=== PATIENT | female | born 1965 | race Caucasian/White ===

== ENCOUNTER 2024-08-20 03:37 | Inpatient (IN) | payer BC, SELFPAY ==
[2024-08-20] VITALS (18 sets, daily range): BP systolic 111–177; BP diastolic 65–100; PULSE 88–120; RESP 14–23; TEMP 36.8–37.1; O2SAT 94–100
--- NOTE | 2024-08-20 | ECHO_ITS ---
Patient Info Name: Daja Snyder Age: 58 years : 1965 Gender: Female Wt: 232 lbs HR: 100 bpm BP: 161 / 79 mmHg Heart Rhythm: Sinus Rhythm Technical Quality: Fair Exam Date: 08/20/2024 11:42 AM Exam Location: Echo Lab Patient Status: Inpatient Admit Date: 08/20/2024 Staff Ordering Physician: Rob Price MD Wheel Braider: Mandi Bone RDCS Attending Provider: Rob Price MD Exam Type: CA echo dop color flow w con Study Info Indications - Acute anterior IA Complete two-dimensional, color flow and Doppler transthoracic echocardiogram is performed with contrast to opacify the left ventricle and to improve the deliniation of the left ventricle endocardial borders. Contrast/Agitated Saline Amount: 5.00 ml IV Access Condition: patent with no signs of infiltration Contrast/Ag. Saline: Definity Amount: --- ml Summary 1. Left ventricular chamber dimension is normal. 2. There is mildly increased left ventricular wall thickness. 3. Left ventricular systolic function is moderately reduced, estimated at 35-40%. 4. There is hypokinesis of the inferoseptum, apex, anteroseptum. 5. The left ventricular diastolic function is grade I diastolic dysfunction. 6. Right ventricular systolic function is normal. 7. There is mild mitral valve regurgitation. 8. There is mild tricuspid valve regurgitation. Left Ventricle Left ventricular chamber dimension is normal. Left ventricular systolic function is moderately reduced, estimated at 35-40%. There is mildly increased left ventricular wall thickness. There is hypokinesis of the inferoseptum, apex, anteroseptum. The left ventricular diastolic function is grade I diastolic dysfunction. Right Ventricle Right ventricular chamber dimension is normal. Right ventricular systolic function is normal. Left Atria Left atrial chamber dimension is normal. Right Atria Right atrial chamber dimension is normal. Atrial Septum Intact interatrial septum visualized by color flow imaging. Aortic Valve The aortic valve is probable trileaflet. There is no aortic valve stenosis. There is no aortic valve regurgitation. Pulmonic Valve The pulmonic valve is not well visualized. Mitral Valve There is mild mitral valve regurgitation. Tricuspid Valve There is mild tricuspid valve regurgitation. Pericardium/Pleural There is no pericardial effusion. Inferior Vena Cava Normal inferior vena cava with >50% collapse upon inspiration consistent with normal right atrial pressure, 3 mmHg. Aorta The aortic root size at the sinus of Valsalva is normal. Left Ventricular Outflow Tract Name Value Normal LVOT 2D LVOT Diameter 2.11 cm LVOT Doppler LVOT Peak Gradient 2 mmHg LVOT Mean Gradient 1 mmHg LVOT VTI 13.47 cm LVOT VTI/AV VTI Ratio 0.72 LVOT Stroke Volume 47.09 ml LVOT CO 4.58 l/min LVOT CI 2.05 L/min/m2 Pulmonic Valve Name Value Normal RVOT Doppler RVOT Peak Gradient 3 mmHg PV Doppler PV Peak Gradient 7 mmHg Mitral Valve Name Value Normal MV Doppler MV Decel Ponce 494.59 cm/s2 MV PHT 0 s MV Area (PHT) 5.13 cm2 4.00-5.00 MV Diastolic Function MV E Peak Velocity 73.13 cm/s MV A Peak Velocity 90.68 cm/s MV E/A 0.81 MV Decel Time 0 s MV Annular TDI MV E/e' (Septal) 10.99 <=8.00 MV E/e' (Lateral) 10.00 <=8.00 MV E/e' (Average) 10.49 Tricuspid Valve Name Value Normal TV Regurgitation Doppler TR Peak Velocity 302.77 cm/s TR Peak Gradient 32 mmHg Estimated PAP/RSVP RA Pressure 3 mmHg <=5 PA Systolic Pressure 40 mmHg <36 RV Systolic Pressure 40 mmHg <36 Aortic Valve Name Value Normal AV Doppler AV Peak Velocity 111.51 cm/s AV Peak Gradient 5 mmHg AV Mean Gradient 3 mmHg AV VTI 18.61 cm AV Area (Cont Eq VTI) 2.53 cm2 >=3.00 AV Area (Cont Eq Esau) 2.38 cm2 AV Regurgitation 2D LVOT Area 3.50 cm2 Ventricles Name Value Normal LV Dimensions 2D/MM IVS Diastolic Thickness (2D) 1.11 cm 0.60-1.00 LVID Diastole (2D) 4.22 cm 3.80-5.20 LVIW Diastolic Thickness (2D) 0.90 cm 0.60-0.90 LVID Systole (2D) 2.99 cm 2.20-3.50 LVOT Diameter 2.11 cm LV Mass (2D Cubed) 139.04 g 67.00-162.00 Relative Wall Thickness (2D) 0.43 LV Fractional Shortening/Ejection Fraction 2D/MM LV Fractional Shortening (2D) 29 % 27-45 LV EF (2D Teicholz) 56 % 54-74 LV Diastolic Volume (4C MOD) 205.83 ml LV EF (4C MOD) 37 % LV Diastolic Volume (2C MOD) 216.28 ml LV EF (2C MOD) 43 % LV Diastolic Volume (BP MOD) 215.91 ml 46.00-106.00 LV Systolic Volume (BP MOD) 126.02 ml 14.00-42.00 LV EF (BP MOD) 42 % 54-74 LV Diastolic Length (4C) 8.91 cm LV Systolic Length (4C) 7.89 cm LV Stroke Volume (4C MOD) 76.18 ml Atria Name Value Normal LA Dimensions LA Volume (4C A-L) 57.97 ml RA Dimensions RA Area (4C) 17.31 cm2 <=18.00 Report Signatures
--- NOTE | ~2024-08-20 | XR_ITS ---
Portable chest x-ray Comparison: 07/21/2017 Clinical History: Chest pain Findings: Possible minimal bibasilar interstitial prominence. Probable minimal central congestive ch prateek. Cardiomediastinal silhouette is stable. Bones and soft tissues are unremarkable. Impression: Minimal central congestive change and possible minimal bibasilar interstitial edema versus minimal bi basilar chronic interstitial change. Reviewed, dictated and finalized at location . Impression: Minimal central congestive change and possible minimal bibasilar interstitial e porter versus minimal bibasilar chronic interstitial change.
--- OUTSIDE RECORDS SUMMARY | 2024-08-20 03:40 | XMS_ITS | Clinical Summary ---
Author Organization [facility] Address [address] [place] [id number] Care Team Providers Care Electrical Solderer Name Role Phone Unavailable Primary Care Provider Unavailabl e Social History Tobacco Use Types Packs/Day Years Used Date Smoking Tobacco: Never Assessed Comments Unknown Sex and Gender Information Value Date Recorded Sex Assigned at Not on file Legal Sex Female 4:24 PM CDT Gender Identity Not on file Sexual Orientation Not on file Plan of Treatment Health Maintenance Due Date Last Done Comments Cervical Cancer Screening Pa p Smear (Age 30 to 64) Every 3 Years 1965 Colorectal Cancer Screening Colonoscopy (10 Years) 1965 Annual Physical 1968 Hepatitis C 11/28/1983 DTaP, Tdap and Td Vaccines ( 1 - Tdap) 1984 Hepatitis B Vaccines (1 of 3 - 19+ 3-dose series) 1984 Cervical Cancer Screening Pa p with HPV Testing (Age 30 to 64) Every 5 Years 11/28/1995 Cervical Cancer Screening with HPV 11/28/1995 Mammogram Screening 2005 Pneumococcal Vaccine: 50+ Ye ars (1 of 1 - PCV) 11/28/2015 Zoster Vaccines (1 of 2) 11/28/2015 COVID-19 Vaccine (2023-2 5 season) 2023 Meningococcal B Vaccine Aged Out No l onger eligible based on patient's age to complete this topic Meningococcal Vaccine Aged Out No cyrus trixie eligible based on patient's age to complete this topic RSV Immunizations Under 20 Months Aged Out No longer eligible based on patient's age to complete this topic
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
--- NOTE | 2024-08-20 03:43 | ECG_ITS ---
Test Date: 2024-08-20 03:48:23 Measurements Intervals [place] Rate: 111 P: 33 KS: 178 QRS: 29 QRSD: 108 T: 69 QT: 374 QTc: 508 Interpretive Statements SINUS TACHYCARDIA POSSIBLE RIGHT VENTRICULAR CONDUCTION DELAY ANTEROSEPTAL ST ELEVATION MYOCARDIAL INFARCT- RECENT BASELINE ARTIFACT- I, III ABNORMAL ECG No previous ECG available for comparison Electronically Signed On 08-20-2024 06:18:20 CDT by Isreal Peter D.O.
--- NOTE | 2024-08-20 03:55 | ED_ITS ---
HPI - General Adult General Chief complaint: Chest Pain Stated complaint: chest pain Time Seen by Provider: 08/20/24 03:50 History of Present Illness HPI narrative: Patient 58-year-old female who presents emergency department with chief complaint of chest pain. Patient reports started having discomfort about 3 days ago reports he started having a burning sensation around 8:00 p.m. tonight the patient states that she has had no prior history of cardiac disease but does report that she has history of diabetes. Related Data Allergies Allergy/AdvReac Type Severity Reaction Status Date / Time No Known Allergies Allergy Verified 08/20/24 03:38 Review of Systems Review of Systems: A 10 system review of systems was completed on the patient and is negative except for what is stated in the HPI. Nursing and ancillary documentation was reviewed. [facility] Social History Social History Smoking status: Never smoker Second hand tobacco smoke exposure: No Alcohol intake: never Exam Narrative: GENERAL: Well-appearing, well-nourished, and in no acute distress. HEAD: Normocephalic, atraumatic. EYES: PERRLA and EOMI. ENT: Nares clear, no rhinorrhea or epistaxis. Mucous membranes moist. NECK: Supple. CHEST: Clear to auscultation. No respiratory distress. HEART: Regular rate and rhythm. No murmur heard. Normal peripheral pulses. ABDOMEN: Soft, nontender, nondistended, normal active bowel sounds. EXTREMITIES: Normal range of motion. No edema. SKIN: Warm, dry, no rash. NEURO: No focal deficits. Alert and oriented x3. PSYCH: Normal mood and affect. Medical Decision Making [facility] Narrative Medical decision making narrative: Differential diagnosis includes ST-elevation [place], ACS, noncardiac chest pain, EKG showed evidence of acute ST-elevation [place] Case was discussed with the on-call correctional counselor/case manager activation of a ST-elevation [place] alert was initiated the patient received aspirin Brilinta and heparin Critical Care Time Critical Care Time Critical Care Time: Yes Total Critical Care Time: 75 Discharge Plan Discharge Clinical Impression: ST elevation (STEMI) myocardial infarction Patient Disposition: Still a Patient Condition: Stable Patient Language: Salvadorean Follow-up/Referrals: June,Antonia Montalvo MD [Primary Care Provider] - Time of Disposition: 04:00
[2024-08-20] MEDS: ASPIRIN 81 MG CHEWABLE TABLET 324 MG PO (03:56)
[2024-08-20 04:02] LABS: Basophils Absolute Auto 0.1 K/mm3 (0.0-0.1); Basophils Percent Auto 0.9 % (0.2-1.2); Eosinophils Absolute Auto 0.1 K/mm3 (0-0.3); Eosinophils Percent Auto 0.8 % (0-4.4); Hematocrit 43.3 % (37.0-47.0); Immature Granulocyte Absolute 0.04 K/mm3 (0.00-0.031); Immature Granulocyte Percent A 0.4 % (0-0.5); Mean Corpuscular HGB Conc 32.3 g/dl (32-36); Mean Corpuscular Hemoglobin 30.2 pg (26-34); Mean Corpuscular Volume 93.3 fl (80-100); Mean Platelet Volume 11.4 fl (7.4-10.4); Monocytes Absolute Auto 0.8 K/mm3 (0.1-0.6); Neutrophils Percent Auto 74.9 % (45.5-73.1); Platelet Count Result 354 k/mm3 (150-375); Red Blood Count 4.64 M/mm3 (4.2-5.4); Red Cell Distribution Width 12.1 % (11.5-14.5); White Blood Count 10.7 K/mm3 (4.5-10.0)
[2024-08-20] MEDS: TICAGRELOR 90 MG TABLET 180 MG PO (04:02)
[2024-08-20] MEDS: MORPHINE SULFATE (*CRX) 2 MG/ML INJ IV PUSH (04:03)
[2024-08-20] MEDS: HEPARIN SODIUM 5,000 UNITS/ML VIAL 4000 UNITS IV PUSH (04:03)
[2024-08-20] MEDS: ONDANSETRON INJ 4 MG/2 ML VIAL IV PUSH (04:04)
--- OUTSIDE RECORDS SUMMARY | 2024-08-20 04:05 | XMS_ITS | Clinical Summary ---
Author Organization [facility] Address [address] [place] [address] Care Team Providers Care Steel Tier Name Role Phone Unavailable Primary Care Provider [...]
[2024-08-20] MEDS: SODIUM CHLORIDE 0.9% IV 1,000 ML 30 ML IV CONT (04:08)
[2024-08-20] MEDS: HEPARIN SOD/D5W 100 UNITS/ML 25,000 UNITS/250 ML BAG 9 UNITS IV CONT (04:11)
[2024-08-20 04:28] LABS: Alanine Aminotransferase 19 U/L (6-35); Albumin Level 4.6 g/dL (3.5-5.1); Alkaline Phosphatase 105 U/L (38-126); Anion Gap 18 mmol/L (4-12); Aspartate Amino Transferase 26 U/L (14-36); Bilirubin,Total 0.5 mg/dL (0.2-1.3); Blood Urea Nitrogen 18 mg/dL (7-17); Calcium 9.7 mg/dL (8.4-10.2); Carbon Dioxide 23 mmol/L (22-30); Chloride 95 mmol/L (98-107); Estimated CRCL calculation 101 ml/min; Estimated Glomerular Filt Rate > 60; Glucose 552 mg/dL (65-110); Lipase 140 U/L (23-300); Potassium 4.2 mmol/L (3.4-5.0); Sodium 136 mmol/L (137-145)
[2024-08-20 04:32] LABS: Troponin I 0.641 ng/mL (0.000-0.034)
--- NOTE | 2024-08-20 04:38 | P.HP_ITS ---
H&P: HPI History of Present Illness Date/Time: 08/20/24 04:38 Chief Complaint: Chest pain, off and on for last few weeks, with worsening of symptoms tonight Narrative: 58-year-old female with history of type 2 diabetes mellitus. No known prior cardiac history. Patient presented to [facility] Emergency Room with complaints of chest pain, off and on for last for last few weeks with worsening of symptoms tonight. Patient describes her chest pain as substernal pressure-like sensation. She denies shortness of breath, palpitations, dizziness or syncope. She denies any prior history of clinical SD, heart failure or any known arrhythmias. EKG at presentation on my personal interpretation showed sinus tachycardia, ST elevation in leads V1-V4. Cardiac catheterization lab was activated for primary PCI. Patient was given aspirin, loading dose of ticagrelor, 4000 units of unfractionated heparin in the emergency room. First set of troponin 0.641. Blood sugar elevated at 552. Review of Systems Review of Systems: General: Negative for fever, chills, fatigue Psychological: Negative for anxiety, depression Ophthalmic: negative for loss of vision ENT: Negative for epistaxis, headaches Allergy and immunology: Negative for hives, nasal congestion Hematologic and lymphatic: Negative for overt bleeding problems Endocrine: Negative for hot flashes, palpitations Respiratory: Negative for cough, hemoptysis Cardiovascular: Positive for chest pain Gastrointestinal: Negative for abdominal pain Musculoskeletal: Negative for myalgia, joint pains Neurological: Negative for weakness Dermatological: Negative for rash, skin discoloration PMFSH Past Medical History Medical History (Updated 08/20/24 @ 04:41 by Rob Price MD) Type 2 diabetes mellitus Social History Social History Smoking status: Never smoker Second hand tobacco smoke exposure: No Alcohol intake: never Meds Home Medications and Allergies Allergies Allergy/AdvReac Type Severity Reaction Status Date / Time No Known Allergies Allergy Verified 08/20/24 03:38 Vital Signs Vital Signs - 24 hr 08/20/24 03:48 08/20/24 03:50 08/20/24 03:56 Pulse Rate 120 H 120 H Respiratory Rate 23 H 18 Blood Pressure 164/94 H 177/100 H Pulse Oximetry 98 100 96 Oxygen Delivery Room Air 08/20/24 04:01 08/20/24 04:16 Pulse Rate 120 H 113 H Respiratory Rate 19 15 Blood Pressure 176/92 H 161/79 H Pulse Oximetry 98 97 Oxygen Delivery Exam Narrative: PHYSICAL EXAMINATION: GENERAL: Obese female, alert, oriented, no acute distress MENTAL STATUS: affect appropriate to mood EYES: Extraocular movements intact, no pallor EARS: External ears appear normal, hearing grossly normal NOSE: Normal and patent, no discharge MOUTH: Mucous membranes moist, tongue normal NECK: Supple, no JVD CHEST: Good respiratory effort, clear to auscultation HEART: Tachycardia, regular rhythm, S1-S2 normal, S4 gallop ABDOMEN: Soft, nontender NEUROLOGICAL: Alert, oriented, normal speech, no gross motor deficits MUSCULOSKELETAL: No major deformity, no amputation EXTREMITIES: Mild pedal edema, no clubbing, no cyanosis SKIN: no rash on the exposed area, no cyanosis PSYCHIATRIC: Normal mood, appropriate affect H&P: Results Labs Labs: Short CBC 08/20/24 Range/Units 03:53 WBC 10.7 H (4.5-10.0) K/mm3 Hgb 14.0 (12.0-15.0) g/dL Hct 43.3 (37.0-47.0) % Plt Count 354 (150-375) k/mm3 BMP 08/20/24 03:53 Sodium 136 L Potassium 4.2 Chloride 95 L Carbon Dioxide 23 BUN 18 H Creatinine 0.61 L Glucose 552 H* Calcium 9.7 Cardiac Enzymes 08/20/24 Range/Units 03:53 Troponin I 0.641 H* (0.000-0.034) ng/mL Liver Function 08/20/24 Range/Units 03:53 Total Bilirubin 0.5 (0.2-1.3) mg/dL AST 26 (14-36) U/L ALT 19 (6-35) U/L Alkaline Phosphatase 105 (38-126) U/L Albumin 4.6 (3.5-5.1) g/dL Assessment and Plan Assessment and plan (1) ST elevation (STEMI) myocardial infarction: Code(s): I21.3 - ST elevation (STEMI) myocardial infarction of unspecified site Status: Acute Assessment and Plan: 58-year-old female with history of type 2 diabetes mellitus. No known prior cardiac history. Patient presented with worsening chest pain, that started few weeks ago as per patient. EKG showed ST elevation in leads V1-V3. Emergent coronary angiogram showed 100% thrombotic occlusion of proximal-mid LAD with RASHI 0 flow-infarct related flow, s/p primary PCI/KAMILLA x2 proximal-mid LAD with anabaptism of RASHI 3 flow. Left ventriculogram showed LV systolic dysfunction with segmental wall motion abnormality with dyskinetic apical segment; LVEF approximately 30%, LVEDP elevated at 23 mmHg. -admit to ICU -dual antiplatelet therapy with aspirin ticagrelor (loading dose of ticagrelor given in the ER)- DAPT for 1 year; high-intensity statin. Due to LV systolic dysfunction, initiate on beta-candice and ACEI or ARB (may consider switching to ARNI later); and may add SGLT 2 inhibitor before hospital discharge. -echo with Doppler -labs including CBC, CMP, serial troponins, lipid panel, HbA1c -telemetry monitoring for post SD arrhythmias -may consider staged intervention on LCX and RPL branch in near future -management of diabetes mellitus as per ICU and hospitalist team
--- NOTE | 2024-08-20 05:45 | P.PCNCC_ITS ---
Cardiac Cath Procedure Note Date of procedure:: 08/20/24 Performing physician:: Rob Price MD Procedure Procedure performed:: EMERGENT CARDIAC CATHETERIZATION AND PERCUTANEOUS CORONARY INTERVENTION REPORT DATE OF PROCEDURE: 08/20/2024 INDICATION FOR PROCEDURE: ACUTE CORONARY SYNDROME-anteroseptal ST-elevation MT BRIEF CLINICAL HISTORY: 58-year-old female with history of type 2 diabetes mellitus. No known prior cardiac history. Patient presented to [facility] Emergency Room with complaints of chest pain, off and on for last for last few weeks with worsening of symptoms tonight. Patient drove herself to the hospital. EKG at presentation showed sinus tachycardia, ST elevation in leads V1-V4. Cardiac catheterization lab was activated for primary PCI. Patient was given aspirin, loading dose of ti cagrelor, 4000 units of unfractionated heparin in the emergency room. First set of troponin 0.641. Blood sugar elevated at 552. PROCEDURES PERFORMED: 1. Left heart catheterization- Selective left and right coronary angiogram; left ventriculogram and hemodynamic assessment 2. Primary Percutaneous coronary intervention- a) intravascular ultrasound-IVUS of left anterior descending artery b) PTCA/stenting of totally occluded proximal-mid LAD using 3.0 x 26 mm and 3.0 x 22 mm Medtronic myra Lyons zotarolimus eluting stents in an overlapping fashion with baptism of RASHI 3 flow 3. Deployment of Mynx hemostatic device 4. Moderate sedation-CPT code 85439 and beyond MODERATE SEDATION: Midazolam 1 mg; fentanyl 25 mcg. Start time 0445 , Stop time 0534 ; Total hyif-wt-bjgm time 49 minutes; Tarah Del Castillo RN was trained observer for moderate sedation. ACCESS SITE: Right common femoral artery PROCEDURE NOTE: Patient was emergently brought to catheterization lab and prepped and draped in a usual sterile manner. After local anesthesia with lidocaine, right common femoral artery access was taken with micropuncture needle followed by insertion of a 6 Thai sheath. Selective left and right coronary angiogram was performed using 6 Thai CLS 3.5 guide catheter and JR4 diagnostic catheters respectively. Orthogonal views were taken. After completion of PCI, a 5 Thai pigtail catheter was advanced in the LV cavity and was flushed with normal saline. LV pressure measurement was performed. After this, left ventriculogram was performed. The catheter was flushed again, and gradient across the aortic valve was measured on the pullback of the catheter. After completion of procedure, Mynx vascular closure device was deployed with good hemostasis. Patient tolerated procedure well without any immediate procedure related complications. FINDINGS: LEFT MAIN CORONARY: Left main coronary artery is a medium to large caliber ves ronen with minimal narrowing in the distal cement, no significant focal stenosis. The vessel trifurcates into LAD, ramus intermedius and left circumflex branches were LEFT ANTERIOR DESCENDING ARTERY: Lad is a medium caliber vessel with 100% thrombotic occlusion in the proximal-mid segment with RASHI 0 flow before intervention. After intervention, the vessel is visualized as at small to medium caliber vessel in the mid segment, tapers distally and reaches LV apex. RAMUS INTERMEDIUS: Medium caliber vessel with mild plaque in the proximal segment; becomes tortuous in the mid-distal segment. LEFT CIRCUMFLEX ARTERY: Small caliber, non dominant with about 70-80% stenosis in the proximal segment. The vessel gives rise to very small caliber OM1 and OM2 branches. RIGHT CORONARY ARTERY: Large caliber, dominant vessel. There is mild diffuse disease in the RCA. Vessel gives rise to small to medium caliber PDA branch. PLV branch is a medium caliber vessel with about 70% diffuse stenosis in p roximal-mid segment. LEFT VENTRICULOGRAM: LV dysfunction with segmental wall motion abnormality; apical segment dyskinetic; LVEF approximately 30%. LVEDP elevated at 23 mmHg. HEMODYNAMIC ASSESSMENT: Opening pressure 152/80 mmHg, closing pressure 137/74 mmHg, LVEDP elevated at 23 mmHg; no significant gradient across aortic valve on the pullback of pigtail catheter. INTERVENTION REPORT: Left main coronary artery was selectively engaged using 6 Thai 3.5 CLS guide catheter. Patient had already received aspirin loading dose of ticagrelor in the ER. Bivalirudin was used for procedural antic oagulation. Totally occluded proximal-mid LAD was successfully crossed using 0.014 commercial helicopter pilot 150 wire. Next, angioplasty was performed using a 2.5 x 10 mm compliant balloon. Next, IVUS was performed which showed diffuse disease in the proximal-mid segment with reference diameter of 3 mm distally. Next, a 3.0 x 26 mm Medtronic myra KAMILLA was deployed at normal pressures in the proximal-mid segment of the LAD. Angiogram showed plaque shift in the distal segment, therefore, another 3.0 x 22 mm Medtronic myra KAMILLA distal to the previously placed stent in an overlapping fashion. Postdilatation was performed using a 3.5x 20 mm NC balloon. IVUS showed reasonable stent apposition in the most of the stent. Additional proximal optimization was not performed due to concern for distal embolization the setting of acute MT. IC nitroglycerin was given. There was baptism of RASHI 3 flow. Left ventriculogram was performed using pigtail catheter as described above. After completion of the procedure, hemostasis was achieved with successful deployment of Mynx vascular closure device with supplemental manual pressure. Chest pain resolved after completion of PCI. CONCLUSIONS: 1. CAD: a) 100% thrombotic occlusion proximal-mid LAD (infarct related vessel); b) about 70-80% focal stenosis in the proximal segment of non dominant LCX; c) mild diffuse disease RCA; about 70% diffuse stenosis RPL branch 2. LV systolic dysfunction with segmental wall motion abnormality-dyskinetic apical segment; LVEF about 30%, LVEDP elevated at 23 mmHg. 3. Primary PCI-IVUS, PTCA/stenting of totally occluded proximal-mid LAD using 3.0 x 26 mm and 3.0 x 22 mm Medtronic myra Lyons zotarolimus eluting stents in an overlapping fashion with baptism of RASHI 3 flow. PLAN/RECOMMENDATIONS: -admit to ICU -dual antiplatelet therapy with aspirin and ticagrelor (loading dose of ticagrelor given in the ER)- DAPT for 1 year; high-intensity statin. Due to LV systolic dysfunction, initiate on beta-candice and ACEI or ARB (may consider switching to ARNI later); and may add SGLT 2 inhibitor before hospital discharge. -echo with Doppler -labs including CBC, CMP, serial troponins, lipid panel, HbA1c -telemetry monitoring for post MT arrhythmias -may consider staged intervention on LCX and RPL branch in near future -management of diabetes mellitus as per ICU and hospitalist team -ICU team and patient's family updated This document was completed by using [employer] Fluency Direct speech recognition software, therefore, gear changer variances may occur.
[2024-08-20 05:49] LABS: INR 0.9; Prothrombin Time 12.3 Seconds (11.1-14.7)
[2024-08-20 05:53] LABS: Cholesterol 270 mg/dL (0-200); HDL Direct 41 mg/dL; Triglycerides 257 mg/dL (<150)
[2024-08-20 06:04] LABS: LDL Cholesterol Direct 162 mg/dL
[2024-08-20 06:23] LABS: Glucose Point of Care 474 mg/dl (65-105)
--- OUTSIDE RECORDS SUMMARY | 2024-08-20 06:30 | XMS_ITS | Clinical Summary ---
Author Organization [facility] Address [address] [place] [id number] Care Team Providers Care Basket Sorter Name Role Phone Unavailable Primary Care Provider [...]
[2024-08-20] MEDS: SODIUM CHLORIDE 0.9% IV 1,000 ML 125 ML IV CONT (06:36)
[2024-08-20] MEDS: INSULIN HUMAN REGULAR (*BKC) 100 UNITS/ML 10 UNITS IV PUSH (06:36)
--- NOTE | 2024-08-20 06:43 | ADMGEN ---
This patient, Daja Snyder, was admitted to Intensive Care Unit-3. Patient/family oriented to hospital policies and general routines including ID bracelet, bed and alarms, visiting hours, pain management, procedures, bathroom and other care routines, personal items, smoking policy, room service/diet, and visiting hours. Information on how to activate the Rapid Response Team has been discussed. Patient/Family are encouraged to report perceived risks to care and to ask questions if they do not understand what they are told or what they should do. Received report from Chester Paige, patient arrived in room at 0558 via bed.
[2024-08-20 06:58] LABS: Hemoglobin A1C 12.7 % (<5.7)
[2024-08-20 07:37] LABS: Glucose Point of Care 398 mg/dl (65-105)
--- NOTE | 2024-08-20 08:20 | P.CONIN_ITS ---
Assessment and Plan Assessment and plan (1) ST elevation (STEMI) myocardial infarction: Code(s): I21.3 - ST elevation (STEMI) myocardial infarction of unspecified site <Antonia Whitlock Student - Last Filed: 08/20/24 09:18> Status: Acute <Antonia Whitlock - Last Filed: 08/20/24 09:18> Assessment and Plan: 08/20- Pt presented to the ED for worsening sternal chest pain that was present for 2-3 days. ECG in the ED demonstrated ST elevation in leads V1-V4 and Troponins were found to be elevated at 0.641 -s/p cardiac cath with KAMILLA placement by Dr. Price -Started on dual anti-platelet therapy (Aspirin and Ticagrelor for 1 year) -Echo with doppler ordered -Repeat Troponin of 65.200 -Cardiology following the pt -Continue Aspirin, Ticagrelor, Lipitor, Carvedilol, and Losartan <Antonia Constantinocaridad, Student - Last Filed: 08/20/24 09:18> (2) S/P cardiac catheterization: Code(s): Z98.890 - Other specified postprocedural states <Antonia Whitlock - Last Filed: 08/20/24 09:18> Status: Acute <Antonia Whitlock - Last Filed: 08/20/24 09:18> Assessment and Plan: 08/20- Pt underwent emergent cardiac catheterization and percutaneous coronary intervention by Dr. Price, band shover, s/p ECG showing ST elevation in leads V1-V4. Pt was found to have 100% thrombotic occlusion proximal-mid LAD (infarct related vessel), about 70-80% focal stenosis in the proximal segment of non dominant LCX, and mild diffuse disease RCA. Primary PCI was performed and KAMILLA was placed in LAD. -Started on dual anti-platelet therapy (Aspirin and Ticagrelor for 1 year) -Echo with doppler ordered <Antonia Whitlock, - Last Filed: 08/20/24 09:18> (3) Chest pain: Code(s): R07.9 - Chest pain, unspecified <Antonia Constantinocaridad Student - Last Filed: 08/20/24 09:18> Status: Acute <Antonia CarrMichael Chin Whitlock - Last Filed: 08/20/24 09:18> Assessment and Plan: 08/20- Pt presented to the ED for worsening sternal chest pain that was present for 2-3 days. ECG in the ED demonstrated ST elevation in leads V1-V4 and Troponins were found to be elevated at 0.641 -s/p cardiac cath with KAMILLA placement by Dr. Price -Currently resolved -Will continue to monitor <Chin Soria - Last Filed: 08/20/24 09:18> (4) Type 2 diabetes mellitus: Code(s): E11.9 - Type 2 diabetes mellitus without complications <Antonia Whitlock Student - Last Filed: 08/20/24 09:18> Status: Acute <Antonia Whitlock Student - Last Filed: 08/20/24 09:18> Assessment and Plan: Pt has a history of DM and is on Glipizide 5mg BID and Metformin 1000mg BID. 08/20- In the ED, Glucose was 552 and A1C was 12.7 -Pt started on sliding scale in the ICU -will continue to monitor BGL -personal development educator consulted <Antonia Whitlock Student - Last Filed: 08/20/24 09:18> Pt has a history of DM and is on Glipizide 5mg BID and Metformin 1000mg BID. 08/20- In the ED, Glucose was 552 and A1C was 12.7 -Pt started on sliding scale in the ICU -will continue to Accu-Cheks -personal development educator consulted -patient started on Lantus <Cedric Wyatt MD - Last Filed: 08/20/24 12:24> (5) Hyperlipidemia: Code(s): E78.5 - Hyperlipidemia, unspecified <Chin Sorai - Last Filed: 08/20/24 09:18> Status: Acute <Chin Soria - Last Filed: 08/20/24 09:18> Assessment and Plan: 08/20- In the ED, pt was found to have Triglycerides of 257 and Cholesterol of 270. -Cardiology consulted and started pt on Lipitor 80mg q daily <Chin Soria - Last Filed: 08/20/24 09:18> Assessment and Plan: DVT prophylaxis: Status post STEMI Stress ulcer prophylaxis: Not indicated Nutrition: Heart healthy diet Code Status: Full code Critical Care Time Spent: 47 minutes Due to a high probability of clinically significant, life threatening deterioration, the patient required my highest level of preparedness to intervene emergently and I personally spent this critical care time directly and personally managing the patient. This critical care time included obtaining a history; examining the patient; pulse oximetry; ordering and review of studies; arranging urgent treatment with development of a management plan; evaluation of patient's response to treatment; frequent reassessment; and discussions with other providers. It was exclusive of separately billable procedures and treating other patients and teaching time. Please see Assessment and Plan section and the rest of the note for further information on patient assessment and treatment This dictation may have been done utilizing a voice recognition system. Attempts have been made to correct errors. However, there may be uncorrected grammatical, spelling, and recognitions errors present. <Chin Soria - Last Filed: 08/20/24 09:18> Home Care Administrator Consult Note Consult date: 08/20/24 <Antonia Whitlock Student - Last Filed: 08/20/24 09:18> 08/20/24 <Cedric Wyatt MD - Last Filed: 08/20/24 12:24> Reason for consult: STEMI <Antonia Whitlock Student - Last Filed: 08/20/24 09:18> HPI: Daja Snyder is a 58 year old female w/ PMHx of DM on Metformin and Glipizide presents for chest pain. Pt reports that she had been experiencing intermittent sternal chest pain for 2-3 days but suddenly worsened last night. She describes the pain as a burning, pressure sensation that worsened with laying supine and improved with sitting up. She did not try anything for her symptoms. She denies radiation of her pain. She denies fever, diaphoresis, SOB, nausea, vomiting, and diarrhea. She has never had similar symptoms like this in the past. 08/20- She presented to the ED for worsening chest pain and ECG at that time demonstrated sinus tachycardia and ST elevation in leads V1-V4 c/w anteroseptal STEMI. Initial Troponin was elevated at 0.641. Blood work in the ED showed glucose of 552, Hemoglobin A1C of 12.7, Triglycerides of 257, and Cholesterol of 270. Cardiac catheterization lab was activated and the patient was given Aspirin, Ticagrelor, and Heparin. -Left heart catheterization was performed by Dr. Price which demonstrated 100% occlusion of the proximal-mid LAD and a KAMILLA was placed. -Pt was admitted to the ICU and was started on a dual antiplatelet therapy with aspirin and ticagrelor (1 year) <Antonia Whitlock Student - Last Filed: 08/20/24 09:18> Review of Systems 2 Review of Systems: All systems reviewed & are unremarkable except as noted in HPI and below <Chin Soria - Last Filed: 08/20/24 09:18> PMFSH Past Medical History Medical History: Medical History (Updated 08/20/24 @ 08:51 by Antonia Whitlock, Student) Type 2 diabetes mellitus <Chin Soria - Last Filed: 08/20/24 09:18> Surgical History Surgical History: Surgical History (Updated 08/20/24 @ 08:51 by Antonia Whitlock, Student) Hx of cholecystectomy Hx of section x4 <Chin Soria - Last Filed: 08/20/24 09:18> Family History Family History: Family History (Updated 08/20/24 @ 08:22 by Antonia Whitlock, Student) Father Acute myocardial infarction Grandparent Acute myocardial infarction Grandparent Acute myocardial infarction <Chin Soria - Last Filed: 08/20/24 09:18> Social History Social History: Social History Smoking status: Never smoker Second hand tobacco smoke exposure: No Alcohol intake: never Substance use: never Substance use type: does not use Do You Feel Safe in your Home?: Yes Lack of Transportation: YES Lack of Food: Never True Current Housing: I Have Housing Concerned About Future Housing: No Difficulty Paying Gas/Electric Bills: No Difficulty Paying for Meds: No Currently Unemployed: No Education: Bachelor's Degree Difficulty w/ Childcare or Family Care: No Spiritual care concerns: No <Chin Soria - Last Filed: 08/20/24 09:18> Meds Home Medications and Allergies Home medications: Home Medications ?Medication ?Instructions ?Recorded ?Confirmed ?Type glipizide 5 mg tablet 5 mg PO BID 08/20/24 08/20/24 History metformin 500 mg tablet 1,000 mg PO BID 08/20/24 08/20/24 History <Antonia Whitlock Student - Last Filed: 08/20/24 09:18> Allergies/Adverse reactions: Allergies Allergy/AdvReac Type Severity Reaction Status Date / Time No Known Allergies Allergy Verified 08/20/24 03:38 <Antonia Whitlock Student - Last Filed: 08/20/24 09:18> Vital Signs Vital Signs - 24 hr 08/20/24 03:48 08/20/24 03:50 08/20/24 03:56 Temperature Pulse Rate 120 H 120 H Respiratory Rate 23 H 18 Blood Pressure 164/94 H 177/100 H Pulse Oximetry 98 100 96 Oxygen Delivery Room Air 08/20/24 04:01 08/20/24 04:16 08/20/24 06:15 Temperature 98.7 F Pulse Rate 120 H 113 H 108 H Respiratory Rate 19 15 16 Blood Pressure 176/92 H 161/79 H 145/90 H Pulse Oximetry 98 97 96 Oxygen Delivery 08/20/24 08:00 08/20/24 08:03 Temperature 98.3 F Pulse Rate 104 H Respiratory Rate 17 Blood Pressure 127/75 Pulse Oximetry 95 96 Oxygen Delivery Room Air <Antonia Whitlock, Student - Last Filed: 08/20/24 09:18> Exam 2 Narrative: General: Patient is pleasant, not in acute distress HEENT:? Pupils equal reactive, sclera is clear Neck:? Supple Respiratory:? Clear to auscultation bilaterally, no wheeze, adequate air entry Cardiac:? S1-S2 is normal, regular rate and rhythm Abdomen:? Soft, nontender, nondistended, normoactive bowel sound Extremities:? Rt groin cardiac cath site is clean and dry w/o erythema, drainage, and ecchymosis, no lower extremity edema Neuro:? Patient is awake, alert oriented, nonfocal, answers to questions appropriately and follows simple commands Skin:? No skin lesions noted Psych:? Normal mentation and affect <Antonia Whitlock Student - Last Filed: 08/20/24 09:18> Results Labs CBC & Chem 7: 08/20/24 03:53 08/20/24 03:53 <Antonai Whitlock Student - Last Filed: 08/20/24 09:18> Labs: Short CBC 08/20/24 Range/Units 03:53 WBC 10.7 H (4.5-10.0) K/mm3 Hgb 14.0 (12.0-15.0) g/dL Hct 43.3 (37.0-47.0) % Plt Count 354 (150-375) k/mm3 BMP 08/20/24 03:53 Sodium 136 L Potassium 4.2 Chloride 95 L Carbon Dioxide 23 BUN 18 H Creatinine 0.61 L Glucose 552 H* Calcium 9.7 Cardiac Enzymes 08/20/24 08/20/24 Range/Units 03:53 06:54 Troponin I 0.641 H* 65.200 H* D (0.000-0.034) ng/mL Liver Function 08/20/24 Range/Units 03:53 Total Bilirubin 0.5 (0.2-1.3) mg/dL AST 26 (14-36) U/L ALT 19 (6-35) U/L Alkaline Phosphatase 105 (38-126) U/L Albumin 4.6 (3.5-5.1) g/dL <Antonia Whitlock Student - Last Filed: 08/20/24 09:18> Hospitalist MIPS Advance Care Plan I have confirmed that the patient's Advanced Care Plan is present, code status is documented, or surrogate decision maker is listed in patient medical record.: Yes <Cedric Wyatt MD - Last Filed: 08/20/24 12:24> Medication Reconciliation I have utilized all available resources to obtain, update and review the patients current medications (includes all prescriptions, OTC, herbals, cannabis, and nutritional supplements).: Yes <Cedric Wyatt MD - Last Filed: 08/20/24 12:24>
[2024-08-20] MEDS: ATORVASTATIN 40 MG TABLET 80 MG PO (08:22)
[2024-08-20] MEDS: LOSARTAN POTASSIUM 12.5 MG TABLET PO (08:23)
[2024-08-20] MEDS: TICAGRELOR 90 MG TABLET PO ×2 (08:23→20:11)
[2024-08-20] MEDS: carvediloL 3.125 MG TABLET PO (08:23)
[2024-08-20] MEDS: INSULIN ASPART (*BKC) 100 UNITS/ML SUB-Q ×4 (08:25→20:10)
[2024-08-20] MEDS: HYDROcodone/acetaminophen (*CRX) 5-325 MG TABLET 1 TAB PO (08:35)
[2024-08-20 10:03] LABS: MRSA (PCR) NOT DETECTED (NOT DETECTE)
--- NOTE | 2024-08-20 10:28 | ECG_ITS ---
Test Date: 2024-08-20 10:54:10 Measurements Intervals [place] Rate: 99 P: 8 LA: 171 QRS: -18 QRSD: 101 T: 19 QT: 406 QTc: 522 Interpretive Statements SINUS RHYTHM VOLTAGE CRITERIA FOR LVH ANTERIOR INFARCT, PROBABLY RECENT BASELINE WANDER- V5 ABNORMAL ECG Compared to ECG 08/20/2024 03:48:23 ST ELEVATION RESOLVING Electronically Signed On 08-20-2024 12:29:25 CDT by Isreal Peter D.O.
[2024-08-20 11:15] LABS: Glucose Point of Care 291 mg/dl (65-105)
[2024-08-20] MEDS: PERFLUTREN LIPID MICROSPHERES 1.5 ML VIAL DILUTED TO 10 ML TOTAL VOLUME IV PUSH (11:20)
[2024-08-20] MEDS: INSULIN GLARGINE (*BKC) 100 UNITS/ML 10 UNITS SUB-Q (11:38)
--- NOTE | 2024-08-20 12:04 | PM.PNCARD ---
Progress Note: A&P Assessment and Plan (1) ST elevation (STEMI) myocardial infarction: Code(s): I21.3 - ST elevation (STEMI) myocardial infarction of unspecified site Status: Acute Plan 1. STEMI -Emergent coronary angiogram showed 100% thrombotic occlusion of proximal-mid LAD with RASHI 0 flow - infarct related flow, s/p primary PCI/KAMILLA x2 proximal-mid LAD with uatsdin of RASHI 3 flow. Left ventriculogram showed LV systolic dysfunction with segmental wall motion abnormality with dyskinetic apical segment; LVEF approximately 30%, LVEDP elevated at 23 mmHg. -Consider staged intervention on LCX and RPL branch in near future -Continue ASA 81mg once daily indefinitely -Continue Brilinta 90mg BID for at least 1 year -High intensity statin -Echocardiogram pending 2. Ischemic cardiomyopathy -Left ventriculogram showed LV systolic dysfunction with segmental wall motion abnormality with dyskinetic apical segment; LVEF approximately 30%, LVEDP elevated at 23 mmHg. -Echocardiogram pending -Continue Carvedilol. -Continue Losartan. -Will adjust heart failure GDMT pending echo results. 3. Type 2 diabetes mellitus, uncontrolled with Hgb A1c of 12.7. -Management of diabetes per ICU team. Recommendations and plan discussed with ICU Physician. Subjective Date/time seen: 08/20/24 12:04 Interval history: Reason for visit: STEMI HPI: 58-year-old female with history of type 2 diabetes mellitus. No known prior cardiac history. Patient presented to [facility] Emergency Room with complaints of chest pain, off and on for last for last few weeks with worsening of symptoms tonight. Patient describes her chest pain as substernal pressure-like sensation. She denies shortness of breath, palpitations, dizziness or syncope. She denies any prior history of clinical VT, heart failure or any known arrhythmias. EKG at presentation on my personal interpretation showed sinus tachycardia, ST elevation in leads V1-V4. Cardiac catheterization lab was activated for primary PCI. Patient was given aspirin, loading dose of ticagrelor, 4000 units of unfractionated heparin in the emergency room. Date of service 08/20: Feeling well this morning. No chest pain. Tele stable. Review of Systems Cardiovascular: Cardiovascular: Reports as per HPI Exam Const: General: comfortable and no acute distress HENMT: Mouth: Yes moist mucous membranes Eyes: General: appearance normal, both eyes and all related structures Sclera: sclerae normal Resp: Effort & Inspection: normal respiratory effort Cardio: Rate: regular rate Rhythm: regular rhythm Heart sounds: no murmurs Skin: General skin exam: normal color Neuro: Speech: normal speech Psych: Mental Status: mental status grossly normal Affect: normal affect Objective Data Vital Signs Vital Signs: Vital Signs - 24 hr 08/20/24 03:48 08/20/24 03:50 08/20/24 03:56 Temperature Pulse Rate 120 H 120 H Respiratory Rate 23 H 18 Blood Pressure 164/94 H 177/100 H Pulse Oximetry 98 100 96 Oxygen Delivery Room Air Oxygen Flow Rate 08/20/24 04:01 08/20/24 04:16 08/20/24 06:15 Temperature 37.1 C Pulse Rate 120 H 113 H 108 H Respiratory Rate 19 15 16 Blood Pressure 176/92 H 161/79 H 145/90 H Pulse Oximetry 98 97 96 Oxygen Delivery Oxygen Flow Rate 08/20/24 08:00 08/20/24 08:00 08/20/24 08:00 Temperature 36.8 C Pulse Rate 104 H 104 H Respiratory Rate 17 Blood Pressure 127/75 Pulse Oximetry 95 95 Oxygen Delivery Nasal Cannula Oxygen Flow Rate 3 08/20/24 08:03 08/20/24 08:23 08/20/24 10:00 Temperature 37.1 C Pulse Rate 104 H 105 H Respiratory Rate 18 Blood Pressure 133/77 Pulse Oximetry 96 94 Oxygen Delivery Room Air Oxygen Flow Rate 08/20/24 10:00 08/20/24 12:00 Temperature Pulse Rate 103 H Respiratory Rate Blood Pressure Pulse Oximetry 95 Oxygen Delivery Nasal Cannula Oxygen Flow Rate 2 Intake/Output Intake/Output: Intake & Output 08/17/24 08/18/24 08/19/24 08/20/24 23:59 23:59 23:59 23:59 Output Total 750 Balance -750 Meds/Results Medications: Active Medications Generic Name Dose Route Start Last Admin Trade Name Freq PRN Reason Stop Dose Admin Aspirin 81 mg 08/21/24 09:00 Aspirin 81 Mg Enteric Tablet PO QAM [facility] Atorvastatin Calcium 80 mg 08/20/24 09:00 08/20/24 08:22 Atorvastatin 40 Mg Tablet PO 80 mg DAILY [facility] Administration Carvedilol 3.125 mg 08/20/24 09:00 08/20/24 08:23 Carvedilol 3.125 Mg Tablet PO 3.125 mg Q12HR [facility]CIRA Administration Dextrose 12.5 gm 08/20/24 06:25 Dextrose 50% 25 Gm/50 Ml Syringe IV PUSH PRN PRN Hypoglycemia Protocol Glucagon 1 mg 08/20/24 06:25 Glucagon For Inj 1 Mg Vial IM PRN PRN Hypoglycemia Protocol Glucose 15 gm 08/20/24 06:25 Glucose Oral Gel 15 Gm Of Glucse In 37.5 Gm Tube PO PRN PRN Hypoglycemia Protocol Sodium Chloride 1,000 mls @ 30 mls/hr 08/20/24 03:54 08/20/24 04:08 Normal Saline Iv IV CONT 08/21/24 03:53 30 mls/hr .Q24H STA Administration Sodium Chloride 1,000 mls @ 125 mls/hr 08/20/24 06:00 08/20/24 06:36 Normal Saline Iv IV CONT 08/20/24 13:59 125 mls/hr .Q8H ONE Administration Dextrose 1,000 mls @ 100 mls/hr 08/20/24 06:25 Dextrose 5% 1,000 Ml IVPB PRN PRN Hypoglycemia Protocol Insulin Aspart 4 - 8 units 08/20/24 08:00 08/20/24 11:39 Insulin Aspart (*Bkc) 100 Units/Ml SUB-Q 5 units TIDWM ALCIRA Administration Protocol Insulin Aspart 2 - 4 units 08/20/24 21:00 Insulin Aspart (*Bkc) 100 Units/Ml SUB-Q HS ALCIRA Protocol Insulin Glargine 10 units 08/21/24 09:00 Insulin Glargine (*Bkc) 100 Units/Ml SUB-Q DAILY [facility]A Losartan Potassium 12.5 mg 08/20/24 09:00 08/20/24 08:23 Losartan Potassium 12.5 Mg Tablet PO 12.5 mg DAILY [facility] Administration Morphine Sulfate 2 mg 08/20/24 03:54 08/20/24 04:03 Morphine Sulfate (*Crx) 2 Mg/Ml Inj IV PUSH 2 mg Q5M PRN Administration Pain Perflutren Lipid Microsphere 0 ml 08/20/24 06:01 Perflutren Lipid Microspheres 1.5 Ml Vial Diluted To 10 Ml Total Volume IV PUSH 08/23/24 06:01 ONCE PRN adequate visualization Protocol Ticagrelor 90 mg 08/20/24 09:00 08/20/24 08:23 Ticagrelor 90 Mg Tablet PO 90 mg Q12HR ALCIRA Administration Radiology Results: ITS Impressions Chest X-Ray 08/20/24 05:35 Impression: Minimal central congestive change and possible minimal bibasilar interstitial edema versus minimal bibasilar chronic interstitial change. Labs Labs: Laboratory Results - last 24 hr 08/20/24 08/20/24 08/20/24 03:53 06:18 06:54 WBC 10.7 H RBC 4.64 Hgb 14.0 Hct 43.3 MCV 93.3 MCH 30.2 MCHC 32.3 RDW 12.1 Plt Count 354 MPV 11.4 H Immature Gran % (Auto) 0.4 Neut % (Auto) 74.9 H Lymph % (Auto) 16.0 L [place] % (Auto) 7.0 Eos % (Auto) 0.8 Baso % (Auto) 0.9 Lymph # (Auto) 1.70 [place] # (Auto) 0.8 H Eos # (Auto) 0.1 Baso # (Auto) 0.1 Abs Immat Gran (auto) 0.04 H Absolute Neuts (auto) 8.0 H Absolute Nucleated RBC 0.000 Nucleated RBC % 0.0 PT 12.3 INR 0.9 APTT 28.0 Sodium 136 L Potassium 4.2 Chloride 95 L Carbon Dioxide 23 Anion Gap 18 H BUN 18 H Creatinine 0.61 L Estim Creat Clear Calc 101 Estimated GFR > 60 Glucose 552 H* POC Capillary Glucose 474 H Hemoglobin A1c 12.7 H Calcium 9.7 Total Bilirubin 0.5 AST 26 ALT 19 Alkaline Phosphatase 105 Troponin I 0.641 H* 65.200 H* D Total Protein 8.0 Albumin 4.6 Triglycerides 257 H Cholesterol 270 H LDL Cholesterol Direct 162 HDL Direct 41 Lipase 140 Nasal MRSA (PCR) Blood Type A Positive Antibody Screen Negative 08/20/24 08/20/24 08/20/24 07:32 08:43 09:17 WBC RBC Hgb Hct MCV MCH MCHC RDW Plt Count MPV Immature Gran % (Auto) Neut % (Auto) Lymph % (Auto) [place] % (Auto) Eos % (Auto) Baso % (Auto) Lymph # (Auto) [place] # (Auto) Eos # (Auto) Baso # (Auto) Abs Immat Gran (auto) Absolute Neuts (auto) Absolute Nucleated RBC Nucleated RBC % PT INR APTT Sodium Potassium Chloride Carbon Dioxide Anion Gap BUN Creatinine Estim Creat Clear Calc Estimated GFR Glucose POC Capillary Glucose 398 H Hemoglobin A1c Calcium Total Bilirubin AST ALT Alkaline Phosphatase Troponin I 53.000 H* Total Protein Albumin Triglycerides Cholesterol LDL Cholesterol Direct HDL Direct Lipase Nasal MRSA (PCR) Not detected Blood Type Antibody Screen 08/20/24 11:08 WBC RBC Hgb Hct MCV MCH MCHC RDW Plt Count MPV Immature Gran % (Auto) Neut % (Auto) Lymph % (Auto) [place] % (Auto) Eos % (Auto) Baso % (Auto) Lymph # (Auto) [place] # (Auto) Eos # (Auto) Baso # (Auto) Abs Immat Gran (auto) Absolute Neuts (auto) Absolute Nucleated RBC Nucleated RBC % PT INR APTT Sodium Potassium Chloride Carbon Dioxide Anion Gap BUN Creatinine Estim Creat Clear Calc Estimated GFR Glucose POC Capillary Glucose 291 H Hemoglobin A1c Calcium Total Bilirubin AST ALT Alkaline Phosphatase Troponin I Total Protein Albumin Triglycerides Cholesterol LDL Cholesterol Direct HDL Direct Lipase Nasal MRSA (PCR) Blood Type Antibody Screen
--- NOTE | 2024-08-20 13:37 | IVDEFINITY ---
Prior to administration of IV Definity the patient was educated on the risks and benefits of the imaging enhancing agent including potential adverse side effects. The patient verbalized understanding. Allergies were verified. No exclusion criteria were identified and at least one of the following inclusion criteria were met: 1) physician request, 2) patient technically difficult to image (per the [place] [employer]chocardi[employer] guidelines of two or more segments not discernable within the apical view), or 3) questionable left ventricular function. ?
[2024-08-20 16:07] LABS: Glucose Point of Care 269 mg/dl (65-105)
[2024-08-20] MEDS: carvediloL 3.125 MG TABLET 6.25 MG PO (20:11)
[2024-08-20 20:12] LABS: Glucose Point of Care 207 mg/dl (65-105)
[2024-08-21] VITALS (18 sets, daily range): BP systolic 104–134; BP diastolic 53–79; PULSE 80–99; RESP 12–21; TEMP 36.6–36.9; O2SAT 95–98; BMI 39.2
[2024-08-21 04:56] LABS: Basophils Absolute Auto 0.1 K/mm3 (0.0-0.1); Basophils Percent Auto 0.5 % (0.2-1.2); Eosinophils Absolute Auto 0.1 K/mm3 (0-0.3); Eosinophils Percent Auto 0.5 % (0-4.4); Hematocrit 36.7 % (37.0-47.0); Hemoglobin 11.7 g/dL (12.0-15.0); Immature Granulocyte Absolute 0.08 K/mm3 (0.00-0.031); Immature Granulocyte Percent A 0.6 % (0-0.5); Lymphocytes Percent Auto 17.5 % (18.3-44.2); Mean Corpuscular HGB Conc 31.9 g/dl (32-36); Mean Corpuscular Hemoglobin 30.8 pg (26-34); Mean Corpuscular Volume 96.6 fl (80-100); Mean Platelet Volume 11.5 fl (7.4-10.4); Monocytes Percent Auto 7.7 % (2.6-8.5); Neutrophils Absolute Auto 9.7 K/mm3 (1.3-6.7); Neutrophils Percent Auto 73.2 % (45.5-73.1); Platelet Count Result 277 k/mm3 (150-375); Red Cell Distribution Width 12.3 % (11.5-14.5); White Blood Count 13.2 K/mm3 (4.5-10.0)
[2024-08-21 05:18] LABS: Alanine Aminotransferase 22 U/L (6-35); Albumin Level 3.8 g/dL (3.5-5.1); Alkaline Phosphatase 80 U/L (38-126); Anion Gap 10 mmol/L (4-12); Aspartate Amino Transferase 62 U/L (14-36); Bilirubin,Total 0.8 mg/dL (0.2-1.3); Blood Urea Nitrogen 20 mg/dL (7-17); Calcium 8.8 mg/dL (8.4-10.2); Carbon Dioxide 23 mmol/L (22-30); Chloride 102 mmol/L (98-107); Estimated CRCL calculation 100 ml/min; Estimated Glomerular Filt Rate > 60; Glucose 272 mg/dL (65-110); Magnesium 1.8 mg/dL (1.6-2.3); Phosphorus 5.1 mg/dL (2.5-4.5); Potassium 3.9 mmol/L (3.4-5.0); Sodium 135 mmol/L (137-145)
[2024-08-21] MEDS: ACETAMINOPHEN 325 MG TABLET 650 MG PO (05:26)
--- NOTE | 2024-08-21 05:29 | PC.NURSE ---
0459: This RN called providers cellphone for Tylenol order. No answer. 0509: This RN called providers cellphone again, no answer. 0510: This RN called house mover supervisor, in which she stated I am going to text him to have him call you . 0515: Hospitalist paged overhead per house mover supervisor, provider reported to floor and this RN received orders.
[2024-08-21 07:12] LABS: Glucose Point of Care 285 mg/dl (65-105)
[2024-08-21] MEDS: ATORVASTATIN 40 MG TABLET 80 MG PO (08:04)
[2024-08-21] MEDS: TICAGRELOR 90 MG TABLET PO ×2 (08:04→20:20)
[2024-08-21] MEDS: EMPAGLIFLOZIN 10 MG TABLET PO (08:04)
[2024-08-21] MEDS: carvediloL 3.125 MG TABLET 6.25 MG PO ×2 (08:04→20:20)
[2024-08-21] MEDS: LOSARTAN POTASSIUM 25 MG TABLET PO (08:05)
[2024-08-21] MEDS: ASPIRIN 81 MG ENTERIC TABLET PO (08:05)
[2024-08-21] MEDS: INSULIN GLARGINE (*BKC) 100 UNITS/ML 10 UNITS SUB-Q (08:05)
[2024-08-21] MEDS: INSULIN ASPART (*BKC) 100 UNITS/ML SUB-Q ×2 (08:06→11:50)
--- NOTE | 2024-08-21 08:13 | WPDINTPN ---
Progress Note: A&P Assessment and Plan (1) ST elevation (STEMI) myocardial infarction: Code(s): I21.3 - ST elevation (STEMI) myocardial infarction of unspecified site Status: Acute Assessment and Plan: 08/20- Pt presented to the ED for worsening sternal chest pain that was present for 2-3 days. ECG in the ED demonstrated ST elevation in leads V1-V4 and Troponins were found to be elevated at 0.641 -s/p cardiac cath with KAMILLA placement by Dr. Price -Cardiology following the pt -Continue Aspirin, Ticagrelor, Lipitor, Carvedilol, and Losartan EchoSummary 1. Left ventricular chamber dimension is normal. 2. There is mildly increased left ventricular wall thickness. 3. Left ventricular systolic function is moderately reduced, estimated at 35-40%. 4. There is hypokinesis of the inferoseptum, apex, anteroseptum. 5. The left ventricular diastolic function is grade I diastolic dysfunction. 6. Right ventricular systolic function is normal. 7. There is mild mitral valve regurgitation. 8. There is mild tricuspid valve regurgitation. (2) S/P cardiac catheterization: Code(s): Z98.890 - Other specified postprocedural states Status: Acute Assessment and Plan: 08/20- Pt underwent emergent cardiac catheterization and percutaneous coronary intervention by Dr. Price, geospatial image analyst, s/p ECG showing ST elevation in leads V1-V4. Pt was found to have 100% thrombotic occlusion proximal-mid LAD (infarct related vessel), about 70-80% focal stenosis in the proximal segment of non dominant LCX, and mild diffuse disease RCA. Primary PCI was performed and KAMILLA was placed in LAD. -Started on dual anti-platelet therapy (Aspirin and Ticagrelor for 1 year) -Echo as above (3) Type 2 diabetes mellitus: Code(s): E11.9 - Type 2 diabetes mellitus without complications Status: Acute Assessment and Plan: Pt has a history of DM and is on Glipizide 5mg BID and Metformin 1000mg BID. 08/20- In the ED, Glucose was 552 and A1C was 12.7 Diabetes is poorly controlled Resume glipizide and metformin Continue Lantus and increase dose Continue SSI for now -will continue to Accu-Cheks -elementary educator consulted (4) Hyperlipidemia: Code(s): E78.5 - Hyperlipidemia, unspecified Status: Acute Assessment and Plan: 08/20- In the ED, pt was found to have Triglycerides of 257 and Cholesterol of 270. -Cardiology consulted and started pt on Lipitor 80mg q daily Plan DVT prophylaxis: Lovenox Stress ulcer prophylaxis: Not indicated Nutrition: Heart healthy and consistent carbohydrate diet Code Status: Full code Transfer out of ICU today Subjective Date/time seen: 08/21/24 Patient feels better and denies any new complaints. She denies any chest pain shortness a breath nausea vomiting abdominal pain. All other systems were reviewed and were negative. Sinus rhythm on the monitor. Adequate blood pressure. She is on room air. Good urine output Review of Systems Review of Systems: All systems reviewed & are unremarkable except as noted in HPI and below (HPI) Exam Narrative: General: Patient is pleasant, not in acute distress HEENT:? Pupils equal reactive, sclera is clear Neck:? Supple Respiratory:? Clear to auscultation bilaterally, no wheeze, adequate air entry Cardiac:? S1-S2 is normal, regular rate and rhythm Abdomen:? Soft, nontender, nondistended, normoactive bowel sound Extremities:? Rt groin cardiac cath site is clean and dry w/o erythema, drainage, and ecchymosis, no lower extremity edema Neuro:? Patient is awake, alert oriented, nonfocal, answers to questions appropriately and follows simple commands Skin:? No skin lesions noted Psych:? Normal mentation and affect Objective Data Vital Signs Vital Signs: Vital Signs - 24 hr 08/20/24 08:23 08/20/24 10:00 08/20/24 10:00 Temperature 37.1 C Pulse Rate 104 H 105 H 103 H Respiratory Rate 18 Blood Pressure 133/77 Pulse Oximetry 94 Oxygen Delivery Oxygen Flow Rate Fraction of Inspired Oxygen 08/20/24 12:00 08/20/24 12:00 08/20/24 12:00 Temperature 37.0 C Pulse Rate 99 100 Respiratory Rate 18 Blood Pressure 136/71 Pulse Oximetry 95 95 Oxygen Delivery Nasal Cannula Oxygen Flow Rate 2 Fraction of Inspired Oxygen 08/20/24 14:00 08/20/24 16:00 08/20/24 16:00 Temperature 36.8 C Pulse Rate 100 98 100 Respiratory Rate 19 19 Blood Pressure 128/65 111/67 Pulse Oximetry 95 97 Oxygen Delivery Oxygen Flow Rate Fraction of Inspired Oxygen 08/20/24 16:00 08/20/24 18:00 08/20/24 18:00 Temperature Pulse Rate 101 H 98 Respiratory Rate 17 Blood Pressure 115/73 Pulse Oximetry 97 98 Oxygen Delivery Nasal Cannula Oxygen Flow Rate 2 Fraction of Inspired Oxygen 08/20/24 20:00 08/20/24 20:00 08/20/24 20:00 Temperature 37.1 C Pulse Rate 110 H 110 H Respiratory Rate 21 H Blood Pressure 128/71 Pulse Oximetry 94 95 Oxygen Delivery Room Air Oxygen Flow Rate Fraction of Inspired Oxygen 08/20/24 20:11 08/20/24 22:00 08/20/24 22:00 Temperature Pulse Rate 99 88 88 Respiratory Rate 14 Blood Pressure 112/66 Pulse Oximetry 97 Oxygen Delivery Oxygen Flow Rate Fraction of Inspired Oxygen 08/20/24 23:32 08/21/24 00:00 08/21/24 00:00 Temperature Pulse Rate 92 85 Respiratory Rate 20 Blood Pressure Pulse Oximetry 96 96 Oxygen Delivery Room Air Room Air Oxygen Flow Rate Fraction of Inspired Oxygen 21 08/21/24 00:00 08/21/24 02:00 08/21/24 02:00 Temperature 36.8 C Pulse Rate 85 85 85 Respiratory Rate 13 12 Blood Pressure 117/53 L 124/70 Pulse Oximetry 98 96 Oxygen Delivery Oxygen Flow Rate Fraction of Inspired Oxygen 08/21/24 04:00 08/21/24 04:00 08/21/24 04:00 Temperature 36.9 C Pulse Rate 96 99 Respiratory Rate 16 Blood Pressure 127/67 Pulse Oximetry 98 98 Oxygen Delivery Room Air Oxygen Flow Rate Fraction of Inspired Oxygen 08/21/24 06:00 08/21/24 06:00 08/21/24 08:00 Temperature 36.8 C Pulse Rate 92 92 88 Respiratory Rate 21 H 19 Blood Pressure 134/76 127/64 Pulse Oximetry 96 95 Oxygen Delivery Oxygen Flow Rate Fraction of Inspired Oxygen 08/21/24 08:04 Temperature Pulse Rate 88 Respiratory Rate Blood Pressure Pulse Oximetry Oxygen Delivery Oxygen Flow Rate Fraction of Inspired Oxygen Intake/Output Intake/Output: Intake & Output 08/18/24 08/19/24 08/20/24 08/21/24 23:59 23:59 23:59 23:59 Intake Total 1910 500 Output Total 1150 600 Balance 760 -100 Meds/Results Medications: Active Medications Generic Name Dose Route Start Last Admin Trade Name Freq PRN Reason Stop Dose Admin Acetaminophen 650 mg 08/21/24 05:18 08/21/24 05:26 Acetaminophen 325 Mg Tablet PO 650 mg Q4H PRN Administration Mild Pain (1-3) or Fever Aspirin 81 mg 08/21/24 09:00 08/21/24 08:05 Aspirin 81 Mg Enteric Tablet PO 81 mg QAM ALCIRA Administration Atorvastatin Calcium 80 mg 08/20/24 09:00 08/21/24 08:04 Atorvastatin 40 Mg Tablet PO 80 mg DAILY [facility] Administration Carvedilol 6.25 mg 08/20/24 21:00 08/21/24 08:04 Carvedilol 3.125 Mg Tablet PO 6.25 mg Q12HR ALCIRA Administration Dextrose 12.5 gm 08/20/24 06:25 Dextrose 50% 25 Gm/50 Ml Syringe IV PUSH PRN PRN Hypoglycemia Protocol Empagliflozin 10 mg 08/21/24 09:00 08/21/24 08:04 Empagliflozin 10 Mg Tablet PO 10 mg DAILY [facility]A Administration Glipizide 5 mg 08/21/24 09:00 Glipizide 5 Mg Tablet PO BID ALC[facility]A Glucagon 1 mg 08/20/24 06:25 Glucagon For Inj 1 Mg Vial IM PRN PRN Hypoglycemia Protocol Glucose 15 gm 08/20/24 06:25 Glucose Oral Gel 15 Gm Of Glucse In 37.5 Gm Tube PO PRN PRN Hypoglycemia Protocol Dextrose 1,000 mls @ 100 mls/hr 08/20/24 06:25 Dextrose 5% 1,000 Ml IVPB PRN PRN Hypoglycemia Protocol Insulin Aspart 4 - 8 units 08/20/24 08:00 08/21/24 08:06 Insulin Aspart (*Bkc) 100 Units/Ml SUB-Q 5 units TIDWM ALCIRA Administration Protocol Insulin Aspart 2 - 4 units 08/20/24 21:00 08/20/24 20:10 Insulin Aspart (*Bkc) 100 Units/Ml SUB-Q 2 units HS [facility]A Administration Protocol Insulin Glargine 10 units 08/21/24 09:00 08/21/24 08:05 Insulin Glargine (*Bkc) 100 Units/Ml SUB-Q 10 units DAILY [facility]A Administration Losartan Potassium 25 mg 08/21/24 09:00 08/21/24 08:05 Losartan Potassium 25 Mg Tablet PO 25 mg DAILY [facility] Administration Metformin HCl 1,000 mg 08/21/24 17:00 Metformin Hcl 500 Mg Tablet PO BIDWM [facility] Ticagrelor 90 mg 08/20/24 09:00 08/21/24 08:04 Ticagrelor 90 Mg Tablet PO 90 mg Q12HR ALCIRA Administration Radiology Results: ITS Impressions Chest X-Ray 08/20/24 05:35 Impression: Minimal central congestive change and possible minimal bibasilar interstitial edema versus minimal bibasilar chronic interstitial change. Labs Labs: Laboratory Results - last 24 hr 08/20/24 08/20/24 08/20/24 08:43 09:17 11:08 WBC RBC Hgb Hct MCV MCH MCHC RDW Plt Count MPV Immature Gran % (Auto) Neut % (Auto) Lymph % (Auto) [place] % (Auto) Eos % (Auto) Baso % (Auto) Lymph # (Auto) [place] # (Auto) Eos # (Auto) Baso # (Auto) Abs Immat Gran (auto) Absolute Neuts (auto) Absolute Nucleated RBC Nucleated RBC % Sodium Potassium Chloride Carbon Dioxide Anion Gap BUN Creatinine Estim Creat Clear Calc Estimated GFR Glucose POC Capillary Glucose 291 H Calcium Phosphorus Magnesium Total Bilirubin AST ALT Alkaline Phosphatase Troponin I 53.000 H* Total Protein Albumin Nasal MRSA (PCR) Not detected 08/20/24 08/20/24 08/21/24 16:02 20:09 04:24 WBC 13.2 H RBC 3.80 L Hgb 11.7 L Hct 36.7 L MCV 96.6 MCH 30.8 MCHC 31.9 L RDW 12.3 Plt Count 277 MPV 11.5 H Immature Gran % (Auto) 0.6 H Neut % (Auto) 73.2 H Lymph % (Auto) 17.5 L [place] % (Auto) 7.7 Eos % (Auto) 0.5 Baso % (Auto) 0.5 Lymph # (Auto) 2.30 [place] # (Auto) 1.0 H Eos # (Auto) 0.1 Baso # (Auto) 0.1 Abs Immat Gran (auto) 0.08 H Absolute Neuts (auto) 9.7 H Absolute Nucleated RBC 0.000 Nucleated RBC % 0.0 Sodium 135 L Potassium 3.9 Chloride 102 Carbon Dioxide 23 Anion Gap 10 BUN 20 H Creatinine 0.61 L Estim Creat Clear Calc 100 Estimated GFR > 60 Glucose 272 H POC Capillary Glucose 269 H 207 H Calcium 8.8 Phosphorus 5.1 H Magnesium 1.8 Total Bilirubin 0.8 AST 62 H ALT 22 Alkaline Phosphatase 80 Troponin I Total Protein 7.0 Albumin 3.8 Nasal MRSA (PCR) 08/21/24 07:05 WBC RBC Hgb Hct MCV MCH MCHC RDW Plt Count MPV Immature Gran % (Auto) Neut % (Auto) Lymph % (Auto) [place] % (Auto) Eos % (Auto) Baso % (Auto) Lymph # (Auto) [place] # (Auto) Eos # (Auto) Baso # (Auto) Abs Immat Gran (auto) Absolute Neuts (auto) Absolute Nucleated RBC Nucleated RBC % Sodium Potassium Chloride Carbon Dioxide Anion Gap BUN Creatinine Estim Creat Clear Calc Estimated GFR Glucose POC Capillary Glucose 285 H Calcium Phosphorus Magnesium Total Bilirubin AST ALT Alkaline Phosphatase Troponin I Total Protein Albumin Nasal MRSA (PCR) Quality VTE Prophylaxis VTE prophylaxis: pharmacologic ordered
--- NOTE | 2024-08-21 08:40 | PM.IMPN ---
Progress Note: A&P Assessment and Plan (1) ST elevation (STEMI) myocardial infarction: Code(s): I21.3 - ST elevation (STEMI) myocardial infarction of unspecified site Status: Acute (2) S/P cardiac catheterization: Code(s): Z98.890 - Other specified postprocedural states Status: Acute (3) Hyperlipidemia: Code(s): E78.5 - Hyperlipidemia, unspecified Status: Acute (4) Type 2 diabetes mellitus: Code(s): E11.9 - Type 2 diabetes mellitus without complications Status: Acute Plan ST elevation (STEMI) myocardial infarction: Code(s): I21.3 - ST elevation (STEMI) myocardial infarction of unspecified site Status: Acute Assessment and Plan: 08/20- Pt presented to the ED for worsening sternal chest pain that was present for 2-3 days. ECG in the ED demonstrated ST elevation in leads V1-V4 and Troponins were found to be elevated at 0.641 -s/p cardiac cath with KAMILLA placement by Dr. Price c/w Aspirin, Ticagrelor, Lipitor, Carvedilol, and Losartan systolic chf Left ventricular systolic function is moderately reduced, estimated at 35-40%. compensated Uncontrolled type 2 diabetes T Code(s): E11.9 - Type 2 diabetes mellitus without complications Status: Acute Assessment and Plan: Pt has a history of DM and is on Glipizide 5mg BID and Metformin 1000mg BID. 08/20- In the ED, Glucose was 552 and A1C was 12.7 Diabetes is poorly controlled Resume glipizide and metformin Increase Lantus to 15 units b.i.d. Continue SSI continue to Accu-Cheks -roller skater consulted Hyperlipidemia: Code(s): E78.5 - Hyperlipidemia, unspecified Status: Acute Assessment and Plan: 08/20- In the ED, pt was found to have Triglycerides of 257 and Cholesterol of 270. -Cardiology consulted and started pt on Lipitor 80mg q daily Subjective Date/time seen: 08/21/24 08:40 Interval history: I saw examined patient today, patient denied chest pain abdomen pain nausea vomiting. Patient afebrile blood pressure stable Exam Narrative: GENERAL: Pleasant, in no acute distress. Well-nourished. - EYES: EOMI. Anicteric. - HENT: Moist mucous membranes. - LUNGS: Clear to auscultation bilaterally, no wheezing, rhonchi, or rales. - CARDIOVASCULAR: Regular rate and rhythm. No murmur. No JVD. - ABDOMEN: Soft, non-tender and non-distended. No palpable masses. Right groin needle inserting site is dry and clean, no hematoma - EXTREMITIES: No edema. Peripheral pulses 2+. Non-tender. - NEUROLOGIC: No focal neurological deficits. CN II-XII grossly intact. - PSYCHIATRIC: Awake, Alert and oriented x 3. Appropriate mood and affect. - SKIN: No rashes or lesions. Warm. - LYMPH: No cervical lymphadenopathy. Objective Data Vital Signs Vital Signs: Vital Signs - 24 hr 08/20/24 10:00 08/20/24 10:00 08/20/24 12:00 Temperature 98.8 F Pulse Rate 105 H 103 H Respiratory Rate 18 Blood Pressure 133/77 Pulse Oximetry 94 95 Oxygen Delivery Nasal Cannula Oxygen Flow Rate 2 Fraction of Inspired Oxygen 08/20/24 12:00 08/20/24 12:00 08/20/24 14:00 Temperature 98.6 F Pulse Rate 99 100 100 Respiratory Rate 18 19 Blood Pressure 136/71 128/65 Pulse Oximetry 95 95 Oxygen Delivery Oxygen Flow Rate Fraction of Inspired Oxygen 08/20/24 16:00 08/20/24 16:00 08/20/24 16:00 Temperature 98.3 F Pulse Rate 98 100 Respiratory Rate 19 Blood Pressure 111/67 Pulse Oximetry 97 97 Oxygen Delivery Nasal Cannula Oxygen Flow Rate 2 Fraction of Inspired Oxygen 08/20/24 18:00 08/20/24 18:00 08/20/24 20:00 Temperature Pulse Rate 101 H 98 Respiratory Rate 17 Blood Pressure 115/73 Pulse Oximetry 98 94 Oxygen Delivery Room Air Oxygen Flow Rate Fraction of Inspired Oxygen 08/20/24 20:00 08/20/24 20:00 08/20/24 20:11 Temperature 98.7 F Pulse Rate 110 H 110 H 99 Respiratory Rate 21 H Blood Pressure 128/71 Pulse Oximetry 95 Oxygen Delivery Oxygen Flow Rate Fraction of Inspired Oxygen 08/20/24 22:00 08/20/24 22:00 08/20/24 23:32 Temperature Pulse Rate 88 88 92 Respiratory Rate 14 20 Blood Pressure 112/66 Pulse Oximetry 97 96 Oxygen Delivery Room Air Oxygen Flow Rate Fraction of Inspired Oxygen 08/21/24 00:00 08/21/24 00:00 08/21/24 00:00 Temperature 98.2 F Pulse Rate 85 85 Respiratory Rate 13 Blood Pressure 117/53 L Pulse Oximetry 96 98 Oxygen Delivery Room Air Oxygen Flow Rate Fraction of Inspired Oxygen 08/21/24 02:00 08/21/24 02:00 08/21/24 04:00 Temperature Pulse Rate 85 85 Respiratory Rate 12 Blood Pressure 124/70 Pulse Oximetry 96 98 Oxygen Delivery Room Air Oxygen Flow Rate Fraction of Inspired Oxygen 08/21/24 04:00 08/21/24 04:00 08/21/24 06:00 Temperature 98.5 F Pulse Rate 96 99 92 Respiratory Rate 16 Blood Pressure 127/67 Pulse Oximetry 98 Oxygen Delivery Oxygen Flow Rate Fraction of Inspired Oxygen 08/21/24 06:00 08/21/24 08:00 08/21/24 08:04 Temperature 98.2 F Pulse Rate 92 88 88 Respiratory Rate 21 H 19 Blood Pressure 134/76 127/64 Pulse Oximetry 96 95 Oxygen Delivery Oxygen Flow Rate Fraction of Inspired Oxygen Intake/Output Intake/Output: Intake & Output 08/18/24 08/19/24 08/20/24 08/21/24 23:59 23:59 23:59 23:59 Intake Total 1910 500 Output Total 1150 600 Balance 760 -100 Meds/Results Medications: Active Medications Generic Name Dose Route Start Last Admin Trade Name Freq PRN Reason Stop Dose Admin Acetaminophen 650 mg 08/21/24 05:18 08/21/24 05:26 Acetaminophen 325 Mg Tablet PO 650 mg Q4H PRN Administration Mild Pain (1-3) or Fever Aspirin 81 mg 08/21/24 09:00 08/21/24 08:05 Aspirin 81 Mg Enteric Tablet PO 81 mg QAM ALCIRA Administration Atorvastatin Calcium 80 mg 08/20/24 09:00 08/21/24 08:04 Atorvastatin 40 Mg Tablet PO 80 mg DAILY ALCIRA Administration Carvedilol 6.25 mg 08/20/24 21:00 08/21/24 08:04 Carvedilol 3.125 Mg Tablet PO 6.25 mg Q12HR ALCIRA Administration Dextrose 12.5 gm 08/20/24 06:25 Dextrose 50% 25 Gm/50 Ml Syringe IV PUSH PRN PRN Hypoglycemia Protocol Empagliflozin 10 mg 08/21/24 09:00 08/21/24 08:04 Empagliflozin 10 Mg Tablet PO 10 mg DAILY ALCIRA Administration Enoxaparin Sodium 40 mg 08/21/24 09:00 Enoxaparin 40 Mg/0.4 Ml Syringe SUB-Q DAILY [facility] Glipizide 5 mg 08/21/24 09:00 Glipizide 5 Mg Tablet PO BID ALCIRA Glucagon 1 mg 08/20/24 06:25 Glucagon For Inj 1 Mg Vial IM PRN PRN Hypoglycemia Protocol Glucose 15 gm 08/20/24 06:25 Glucose Oral Gel 15 Gm Of Glucse In 37.5 Gm Tube PO PRN PRN Hypoglycemia Protocol Dextrose 1,000 mls @ 100 mls/hr 08/20/24 06:25 Dextrose 5% 1,000 Ml IVPB PRN PRN Hypoglycemia Protocol Insulin Aspart 4 - 8 units 08/20/24 08:00 08/21/24 08:06 Insulin Aspart (*Bkc) 100 Units/Ml SUB-Q 5 units TIDWM ALCIRA Administration Protocol Insulin Aspart 2 - 4 units 08/20/24 21:00 08/20/24 20:10 Insulin Aspart (*Bkc) 100 Units/Ml SUB-Q 2 units HS ALCIRA Administration Protocol Insulin Glargine 15 units 08/21/24 09:00 Insulin Glargine (*Bkc) 100 Units/Ml SUB-Q DAILY [facility] Losartan Potassium 25 mg 08/21/24 09:00 08/21/24 08:05 Losartan Potassium 25 Mg Tablet PO 25 mg DAILY [facility]A Administration Metformin HCl 1,000 mg 08/21/24 17:00 Metformin Hcl 500 Mg Tablet PO BIDWM [facility] Ticagrelor 90 mg 08/20/24 09:00 08/21/24 08:04 Ticagrelor 90 Mg Tablet PO 90 mg Q12HR ALCIRA Administration Radiology Results: ITS Impressions Chest X-Ray 08/20/24 05:35 Impression: Minimal central congestive change and possible minimal bibasilar interstitial edema versus minimal bibasilar chronic interstitial change. Labs Labs: Laboratory Results - last 24 hr 08/20/24 08/20/24 08/20/24 08:43 09:17 11:08 WBC RBC Hgb Hct MCV MCH MCHC RDW Plt Count MPV Immature Gran % (Auto) Neut % (Auto) Lymph % (Auto) [place] % (Auto) Eos % (Auto) Baso % (Auto) Lymph # (Auto) [place] # (Auto) Eos # (Auto) Baso # (Auto) Abs Immat Gran (auto) Absolute Neuts (auto) Absolute Nucleated RBC Nucleated RBC % Sodium Potassium Chloride Carbon Dioxide Anion Gap BUN Creatinine Estim Creat Clear Calc Estimated GFR Glucose POC Capillary Glucose 291 H Calcium Phosphorus Magnesium Total Bilirubin AST ALT Alkaline Phosphatase Troponin I 53.000 H* Total Protein Albumin Nasal MRSA (PCR) Not detected 08/20/24 08/20/24 08/21/24 16:02 20:09 04:24 WBC 13.2 H RBC 3.80 L Hgb 11.7 L Hct 36.7 L MCV 96.6 MCH 30.8 MCHC 31.9 L RDW 12.3 Plt Count 277 MPV 11.5 H Immature Gran % (Auto) 0.6 H Neut % (Auto) 73.2 H Lymph % (Auto) 17.5 L [place] % (Auto) 7.7 Eos % (Auto) 0.5 Baso % (Auto) 0.5 Lymph # (Auto) 2.30 [place] # (Auto) 1.0 H Eos # (Auto) 0.1 Baso # (Auto) 0.1 Abs Immat Gran (auto) 0.08 H Absolute Neuts (auto) 9.7 H Absolute Nucleated RBC 0.000 Nucleated RBC % 0.0 Sodium 135 L Potassium 3.9 Chloride 102 Carbon Dioxide 23 Anion Gap 10 BUN 20 H Creatinine 0.61 L Estim Creat Clear Calc 100 Estimated GFR > 60 Glucose 272 H POC Capillary Glucose 269 H 207 H Calcium 8.8 Phosphorus 5.1 H Magnesium 1.8 Total Bilirubin 0.8 AST 62 H ALT 22 Alkaline Phosphatase 80 Troponin I Total Protein 7.0 Albumin 3.8 Nasal MRSA (PCR) 08/21/24 07:05 WBC RBC Hgb Hct MCV MCH MCHC RDW Plt Count MPV Immature Gran % (Auto) Neut % (Auto) Lymph % (Auto) [place] % (Auto) Eos % (Auto) Baso % (Auto) Lymph # (Auto) [place] # (Auto) Eos # (Auto) Baso # (Auto) Abs Immat Gran (auto) Absolute Neuts (auto) Absolute Nucleated RBC Nucleated RBC % Sodium Potassium Chloride Carbon Dioxide Anion Gap BUN Creatinine Estim Creat Clear Calc Estimated GFR Glucose POC Capillary Glucose 285 H Calcium Phosphorus Magnesium Total Bilirubin AST ALT Alkaline Phosphatase Troponin I Total Protein Albumin Nasal MRSA (PCR)
[2024-08-21] MEDS: glipiZIDE 5 MG TABLET PO ×2 (09:09→16:32)
[2024-08-21] MEDS: ENOXAPARIN 40 MG/0.4 ML SYRINGE SUB-Q (09:09)
[2024-08-21] MEDS: INSULIN GLARGINE (*BKC) 100 UNITS/ML SUB-Q (09:10)
--- NOTE | 2024-08-21 09:13 | PM.PNCARD ---
Progress Note: A&P Assessment and Plan (1) ST elevation (STEMI) myocardial infarction: Code(s): I21.3 - ST elevation (STEMI) myocardial infarction of unspecified site Status: Acute Plan 1. STEMI -Emergent coronary angiogram showed 100% thrombotic occlusion of proximal-mid LAD with RASHI 0 flow - infarct related flow, s/p primary PCI/KAMILLA x2 proximal-mid LAD with anabaptist of RASHI 3 flow. Left ventriculogram showed LV systolic dysfunction with segmental wall motion abnormality with dyskinetic apical segment; LVEF approximately 30%, LVEDP elevated at 23 mmHg. -Consider staged intervention on LCX and RPL branch in near future -Continue ASA 81mg once daily indefinitely -Continue Brilinta 90mg BID for at least 1 year. Brilinta prescription sent to [facility]. -High intensity statin 2. Ischemic cardiomyopathy -Left ventriculogram showed LV systolic dysfunction with segmental wall motion abnormality with dyskinetic apical segment; LVEF approximately 30%, LVEDP elevated at 23 mmHg. -Echocardiogram shows LVEF 35-40%. -Continue Carvedilol, increased dose to 6.25mg BID. -Continue Losartan, increased dose to 25mg once daily. -Started Jardiance 10mg once daily given reduced LVEF and diabetes. 3. Type 2 diabetes mellitus, uncontrolled with Hgb A1c of 12.7. -Management of diabetes per ICU / Hospitalist. -Placed an outpatient referral to [facility]. Transfer out of ICU to IMU today. Anticipate discharge home tomorrow if her blood sugars do okay, otherwise stable from a cardiac standpoint for discharge. Recommendations and plan discussed with ICU Physician. Subjective Date/time seen: 08/21/24 09:13 Interval history: Reason for visit: STEMI HPI: 58-year-old female with history of type 2 diabetes mellitus. No known prior cardiac history. Patient presented to [facility] Emergency Room with complaints of chest pain, off and on for last for last few weeks with worsening of symptoms tonight. Patient describes her chest pain as substernal pressure-like sensation. She denies shortness of breath, palpitations, dizziness or syncope. She denies any prior history of clinical [place], heart failure or any known arrhythmias. EKG at presentation on my personal interpretation showed sinus tachycardia, ST elevation in leads V1-V4. Cardiac catheterization lab was activated for primary PCI. Patient was given aspirin, loading dose of ticagrelor, 4000 units of unfractionated heparin in the emergency room. Date of service 08/20: Feeling well this morning. No chest pain. Tele stable. Date of service 08/21: Feeling well. Tele stable. Review of Systems Review of Systems: All systems reviewed & are unremarkable except as noted in HPI and below (HPI) Exam Const: General: comfortable and no acute distress HENMT: Mouth: Yes moist mucous membranes Eyes: General: appearance normal, both eyes and all related structures Sclera: sclerae normal Resp: Effort & Inspection: normal respiratory effort Cardio: Rate: regular rate Rhythm: regular rhythm Skin: General skin exam: normal color Neuro: Speech: normal speech Psych: Mental Status: mental status grossly normal Affect: normal affect Objective Data Vital Signs Vital Signs: Vital Signs - 24 hr 08/20/24 10:00 08/20/24 10:00 08/20/24 12:00 Temperature 37.1 C Pulse Rate 105 H 103 H Respiratory Rate 18 Blood Pressure 133/77 Pulse Oximetry 94 95 Oxygen Delivery Nasal Cannula Oxygen Flow Rate 2 Fraction of Inspired Oxygen 08/20/24 12:00 08/20/24 12:00 08/20/24 14:00 Temperature 37.0 C Pulse Rate 99 100 100 Respiratory Rate 18 19 Blood Pressure 136/71 128/65 Pulse Oximetry 95 95 Oxygen Delivery Oxygen Flow Rate Fraction of Inspired Oxygen 08/20/24 16:00 08/20/24 16:00 08/20/24 16:00 Temperature 36.8 C Pulse Rate 98 100 Respiratory Rate 19 Blood Pressure 111/67 Pulse Oximetry 97 97 Oxygen Delivery Nasal Cannula Oxygen Flow Rate 2 Fraction of Inspired Oxygen 08/20/24 18:00 08/20/24 18:00 08/20/24 20:00 Temperature Pulse Rate 101 H 98 Respiratory Rate 17 Blood Pressure 115/73 Pulse Oximetry 98 94 Oxygen Delivery Room Air Oxygen Flow Rate Fraction of Inspired Oxygen 08/20/24 20:00 08/20/24 20:00 08/20/24 20:11 Temperature 37.1 C Pulse Rate 110 H 110 H 99 Respiratory Rate 21 H Blood Pressure 128/71 Pulse Oximetry 95 Oxygen Delivery Oxygen Flow Rate Fraction of Inspired Oxygen 08/20/24 22:00 08/20/24 22:00 08/20/24 23:32 Temperature Pulse Rate 88 88 92 Respiratory Rate 14 20 Blood Pressure 112/66 Pulse Oximetry 97 96 Oxygen Delivery Room Air Oxygen Flow Rate Fraction of Inspired Oxygen 21 08/21/24 00:00 08/21/24 00:00 08/21/24 00:00 Temperature 36.8 C Pulse Rate 85 85 Respiratory Rate 13 Blood Pressure 117/53 L Pulse Oximetry 96 98 Oxygen Delivery Room Air Oxygen Flow Rate Fraction of Inspired Oxygen 08/21/24 02:00 08/21/24 02:00 08/21/24 04:00 Temperature Pulse Rate 85 85 Respiratory Rate 12 Blood Pressure 124/70 Pulse Oximetry 96 98 Oxygen Delivery Room Air Oxygen Flow Rate Fraction of Inspired Oxygen 08/21/24 04:00 08/21/24 04:00 08/21/24 06:00 Temperature 36.9 C Pulse Rate 96 99 92 Respiratory Rate 16 Blood Pressure 127/67 Pulse Oximetry 98 Oxygen Delivery Oxygen Flow Rate Fraction of Inspired Oxygen 08/21/24 06:00 08/21/24 08:00 08/21/24 08:04 Temperature 36.8 C Pulse Rate 92 88 88 Respiratory Rate 21 H 19 Blood Pressure 134/76 127/64 Pulse Oximetry 96 95 Oxygen Delivery Oxygen Flow Rate Fraction of Inspired Oxygen Intake/Output Intake/Output: Intake & Output 08/18/24 08/19/24 08/20/24 08/21/24 23:59 23:59 23:59 23:59 Intake Total 1910 500 Output Total 1150 600 Balance 760 -100 Meds/Results Medications: Active Medications Generic Name Dose Route Start Last Admin Trade Name Freq PRN Reason Stop Dose Admin Acetaminophen 650 mg 08/21/24 05:18 08/21/24 05:26 Acetaminophen 325 Mg Tablet PO 650 mg Q4H PRN Administration Mild Pain (1-3) or Fever Aspirin 81 mg 08/21/24 09:00 08/21/24 08:05 Aspirin 81 Mg Enteric Tablet PO 81 mg QAM ALCIRA Administration Atorvastatin Calcium 80 mg 08/20/24 09:00 08/21/24 08:04 Atorvastatin 40 Mg Tablet PO 80 mg DAILY [facility]A Administration Carvedilol 6.25 mg 08/20/24 21:00 08/21/24 08:04 Carvedilol 3.125 Mg Tablet PO 6.25 mg Q12HR ALCIRA Administration Dextrose 12.5 gm 08/20/24 06:25 Dextrose 50% 25 Gm/50 Ml Syringe IV PUSH PRN PRN Hypoglycemia Protocol Empagliflozin 10 mg 08/21/24 09:00 08/21/24 08:04 Empagliflozin 10 Mg Tablet PO 10 mg DAILY ALCIRA Administration Enoxaparin Sodium 40 mg 08/21/24 09:00 08/21/24 09:09 Enoxaparin 40 Mg/0.4 Ml Syringe SUB-Q 40 mg DAILY ALCIRA Administration Glipizide 5 mg 08/21/24 09:00 08/21/24 09:09 Glipizide 5 Mg Tablet PO 5 mg BID ALCIRA Administration Glucagon 1 mg 08/20/24 06:25 Glucagon For Inj 1 Mg Vial IM PRN PRN Hypoglycemia Protocol Glucose 15 gm 08/20/24 06:25 Glucose Oral Gel 15 Gm Of Glucse In 37.5 Gm Tube PO PRN PRN Hypoglycemia Protocol Dextrose 1,000 mls @ 100 mls/hr 08/20/24 06:25 Dextrose 5% 1,000 Ml IVPB PRN PRN Hypoglycemia Protocol Insulin Aspart 4 - 8 units 08/20/24 08:00 08/21/24 08:06 Insulin Aspart (*Bkc) 100 Units/Ml SUB-Q 5 units TIDWM ALCIRA Administration Protocol Insulin Aspart 2 - 4 units 08/20/24 21:00 08/20/24 20:10 Insulin Aspart (*Bkc) 100 Units/Ml SUB-Q 2 units HS ALCIRA Administration Protocol Insulin Glargine 15 units 08/21/24 09:00 08/21/24 09:01 Insulin Glargine (*Bkc) 100 Units/Ml SUB-Q Not Given DAILY [facility] Losartan Potassium 25 mg 08/21/24 09:00 08/21/24 08:05 Losartan Potassium 25 Mg Tablet PO 25 mg DAILY ALCIRA Administration Metformin HCl 1,000 mg 08/21/24 17:00 Metformin Hcl 500 Mg Tablet PO BIDWM [facility] Ticagrelor 90 mg 08/20/24 09:00 08/21/24 08:04 Ticagrelor 90 Mg Tablet PO 90 mg Q12HR ALCIRA Administration Radiology Results: ITS Impressions Chest X-Ray 08/20/24 05:35 Impression: Minimal central congestive change and possible minimal bibasilar interstitial edema versus minimal bibasilar chronic interstitial change. Labs Labs: Laboratory Results - last 24 hr 08/20/24 08/20/24 08/20/24 08:43 09:17 11:08 WBC RBC Hgb Hct MCV MCH MCHC RDW Plt Count MPV Immature Gran % (Auto) Neut % (Auto) Lymph % (Auto) [place] % (Auto) Eos % (Auto) Baso % (Auto) Lymph # (Auto) [place] # (Auto) Eos # (Auto) Baso # (Auto) Abs Immat Gran (auto) Absolute Neuts (auto) Absolute Nucleated RBC Nucleated RBC % Sodium Potassium Chloride Carbon Dioxide Anion Gap BUN Creatinine Estim Creat Clear Calc Estimated GFR Glucose POC Capillary Glucose 291 H Calcium Phosphorus Magnesium Total Bilirubin AST ALT Alkaline Phosphatase Troponin I 53.000 H* Total Protein Albumin Nasal MRSA (PCR) Not detected 08/20/24 08/20/24 08/21/24 16:02 20:09 04:24 WBC 13.2 H RBC 3.80 L Hgb 11.7 L Hct 36.7 L MCV 96.6 MCH 30.8 MCHC 31.9 L RDW 12.3 Plt Count 277 MPV 11.5 H Immature Gran % (Auto) 0.6 H Neut % (Auto) 73.2 H Lymph % (Auto) 17.5 L [place] % (Auto) 7.7 Eos % (Auto) 0.5 Baso % (Auto) 0.5 Lymph # (Auto) 2.30 [place] # (Auto) 1.0 H Eos # (Auto) 0.1 Baso # (Auto) 0.1 Abs Immat Gran (auto) 0.08 H Absolute Neuts (auto) 9.7 H Absolute Nucleated RBC 0.000 Nucleated RBC % 0.0 Sodium 135 L Potassium 3.9 Chloride 102 Carbon Dioxide 23 Anion Gap 10 BUN 20 H Creatinine 0.61 L Estim Creat Clear Calc 100 Estimated GFR > 60 Glucose 272 H POC Capillary Glucose 269 H 207 H Calcium 8.8 Phosphorus 5.1 H Magnesium 1.8 Total Bilirubin 0.8 AST 62 H ALT 22 Alkaline Phosphatase 80 Troponin I Total Protein 7.0 Albumin 3.8 Nasal MRSA (PCR) 08/21/24 07:05 WBC RBC Hgb Hct MCV MCH MCHC RDW Plt Count MPV Immature Gran % (Auto) Neut % (Auto) Lymph % (Auto) [place] % (Auto) Eos % (Auto) Baso % (Auto) Lymph # (Auto) [place] # (Auto) Eos # (Auto) Baso # (Auto) Abs Immat Gran (auto) Absolute Neuts (auto) Absolute Nucleated RBC Nucleated RBC % Sodium Potassium Chloride Carbon Dioxide Anion Gap BUN Creatinine Estim Creat Clear Calc Estimated GFR Glucose POC Capillary Glucose 285 H Calcium Phosphorus Magnesium Total Bilirubin AST ALT Alkaline Phosphatase Troponin I Total Protein Albumin Nasal MRSA (PCR)
[2024-08-21 11:15] LABS: Glucose Point of Care 268 mg/dl (65-105)
--- NOTE | 2024-08-21 15:56 | PC.NURSE ---
This patient, Daja Snyder, was transferred to [ [facility]] on 08/21/24 at 1553. Personal belongings sent with patient. Report given to [ Hellen ]. Appropriate documentation sent with patient.
[2024-08-21 16:21] LABS: Glucose Point of Care 148 mg/dl (65-105)
[2024-08-21] MEDS: INSULIN GLARGINE (*BKC) 100 UNITS/ML 15 UNITS SUB-Q (16:32)
--- NOTE | 2024-08-21 17:08 | PC.NURSE ---
This patient, Daja Snyder, was received from ICU on 08/21/24 at 1557. Patient/family oriented to unit policies and routines.
[2024-08-21 20:17] LABS: Glucose Point of Care 171 mg/dl (65-105)
[2024-08-22] VITALS (7 sets, daily range): BP systolic 114–129; BP diastolic 56–66; PULSE 80–95; RESP 16–20; TEMP 36.5–36.7; O2SAT 97–98
[2024-08-22 07:50] LABS: Glucose Point of Care 168 mg/dl (65-105)
--- NOTE | 2024-08-22 08:05 | P.PNIM_ITS ---
Progress Note: A&P Assessment and Plan (1) ST elevation (STEMI) myocardial infarction: Code(s): I21.3 - ST elevation (STEMI) myocardial infarction of unspecified site Status: Acute (2) S/P cardiac catheterization: Code(s): Z98.890 - Other specified postprocedural states Status: Acute (3) Hyperlipidemia: Code(s): E78.5 - Hyperlipidemia, unspecified Status: Acute (4) Type 2 diabetes mellitus: Code(s): E11.9 - Type 2 diabetes mellitus without complications Status: Acute Plan ST elevation (STEMI) myocardial infarction: Code(s): I21.3 - ST elevation (STEMI) myocardial infarction of unspecified site Status: Acute Assessment and Plan: 08/20- Pt presented to the ED for worsening sternal chest pain that was present for 2-3 days. ECG in the ED demonstrated ST elevation in leads V1-V4 and Troponins were found to be elevated at 0.641 -s/p cardiac cath with KAMILLA placement by Dr. Price c/w Aspirin, Ticagrelor, Lipitor, Carvedilol, and Losartan systolic chf Left ventricular systolic function is moderately reduced, estimated at 35-40%. compensated Start Entresto per wireless technician recommendation Uncontrolled type 2 diabetes T Code(s): E11.9 - Type 2 diabetes mellitus without complications Status: Acute Assessment and Plan: Pt has a history of DM and is on Glipizide 5mg BID and Metformin 1000mg BID. 08/20- In the ED, Glucose was 552 and A1C was 12.7 Diabetes is poorly controlled Resume glipizide and metformin Increase Lantus to 15 units b.i.d. Continue SSI continue to Accu-Cheks -tobacco prevention health educator consulted Changed to Lantus 15 units q.h.s., continue current dose of lisinopril before each meal and sliding scale Glucose is controlled in the target Hyperlipidemia: Code(s): E78.5 - Hyperlipidemia, unspecified Status: Acute Assessment and Plan: 08/20- In the ED, pt was found to have Triglycerides of 257 and Cholesterol of 270. Cardiology consulted and started pt on Lipitor 80mg q daily Subjective Date/time seen: 08/22/24 08:05 Interval history: I saw examined patient today, patient denied chest pain, palpitation, lightheadedness, abdomen pain nausea vomiting. Patient afebrile blood pressure stable Exam Narrative: GENERAL: Pleasant, in no acute distress. Well-nourished. - EYES: EOMI. Anicteric. - HENT: Moist mucous membranes. - LUNGS: Clear to auscultation bilateral ly, no wheezing, rhonchi, or rales. - CARDIOVASCULAR: Regular rate and rhyth m. No murmur. No JVD. - ABDOMEN: Soft, non-tender and non-dist ended. No palpable masses. Right groin needle inserting site is dry and clean, no hematoma - EXTREMITIES: No edema. Peripheral puls es 2+. Non-tender. - NEUROLOGIC: No focal neurological defi cits. CN II-XII grossly intact. - PSYCHIATRIC: Awake, Alert and oriented x 3. Appropriate mood and affect. - SKIN: No rashes or lesions. Warm. - LYMPH: No cervical lymphadenopathy. Objective Data Vital Signs Vital Signs: Vital Signs - 24 hr 08/21/24 10:00 08/21/24 12:00 08/21/24 12:00 Temperature 98.2 F Pulse Rate 88 89 88 Respiratory Rate 20 Blood Pressure 108/77 Pulse Oximetry 97 Oxygen Delivery Fraction of Inspired Oxygen 08/21/24 14:00 08/21/24 16:00 08/21/24 16:48 Temperature 98.2 F Pulse Rate 86 91 91 Respiratory Rate 20 Blood Pressure 117/59 L Pulse Oximetry 97 Oxygen Delivery Fraction of Inspired Oxygen 08/21/24 18:00 08/21/24 20:00 08/21/24 20:04 Temperature 97.9 F Pulse Rate 90 99 96 Respiratory Rate 20 Blood Pressure 104/79 Pulse Oximetry 97 Oxygen Delivery Fraction of Inspired Oxygen 08/21/24 20:20 08/21/24 20:35 08/21/24 22:00 Temperature Pulse Rate 95 95 88 Respiratory Rate 20 Blood Pressure Pulse Oximetry 97 Oxygen Delivery Room Air Fraction of Inspired Oxygen 08/21/24 23:42 08/22/24 00:00 08/22/24 00:00 Temperature 97.8 F Pulse Rate 80 80 84 Respiratory Rate 20 20 Blood Pressure 113/56 L Pulse Oximetry 97 97 Oxygen Delivery Room Air Fraction of Inspired Oxygen 21 08/22/24 02:00 08/22/24 03:40 08/22/24 04:00 Temperature Pulse Rate 83 83 86 Respiratory Rate 20 Blood Pressure Pulse Oximetry 97 Oxygen Delivery Room Air Fraction of Inspired Oxygen 08/22/24 04:12 08/22/24 06:00 08/22/24 08:00 Temperature 98.1 F 97.7 F Pulse Rate 93 95 87 Respiratory Rate 20 16 Blood Pressure 129/66 114/56 L Pulse Oximetry 97 98 Oxygen Delivery Fraction of Inspired Oxygen Intake/Output Intake/Output: Intake & Output 08/19/24 08/20/24 08/21/24 08/22/24 23:59 23:59 23:59 23:59 Intake Total 1910 1777 720 Output Total 1150 1000 800 Balance 760 777 -80 Meds/Results Medications: Active Medications Generic Name Dose Route Start Last Admin Trade Name Freq PRN Reason Stop Dose Admin Acetaminophen 650 mg 08/21/24 05:18 08/21/24 05:26 Acetaminophen 325 Mg Tablet PO 650 mg Q4H PRN Administration Mild Pain (1-3) or Fever Aspirin 81 mg 08/21/24 09:00 08/21/24 08:05 Aspirin 81 Mg Enteric Tablet PO 81 mg QAM ALCIRA Administration Atorvastatin Calcium 80 mg 08/20/24 09:00 08/21/24 08:04 Atorvastatin 40 Mg Tablet PO 80 mg DAILY ALCIRA Administration Carvedilol 6.25 mg 08/20/24 21:00 08/21/24 20:20 Carvedilol 3.125 Mg Tablet PO 6.25 mg Q12HR ALCIRA Administration Dextrose 12.5 gm 08/20/24 06:25 Dextrose 50% 25 Gm/50 Ml Syringe IV PUSH PRN PRN Hypoglycemia Protocol Empagliflozin 10 mg 08/21/24 09:00 08/21/24 08:04 Empagliflozin 10 Mg Tablet PO 10 mg DAILY ALCIRA Administration Enoxaparin Sodium 40 mg 08/21/24 09:00 08/21/24 09:09 Enoxaparin 40 Mg/0.4 Ml Syringe SUB-Q 40 mg DAILY ALCIRA Administration Glipizide 5 mg 08/21/24 09:00 08/21/24 16:32 Glipizide 5 Mg Tablet PO 5 mg BID ALCIRA Administration Glucagon 1 mg 08/20/24 06:25 Glucagon For Inj 1 Mg Vial IM PRN PRN Hypoglycemia Protocol Glucose 15 gm 08/20/24 06:25 Glucose Oral Gel 15 Gm Of Glucse In 37.5 Gm Tube PO PRN PRN Hypoglycemia Protocol Dextrose 1,000 mls @ 100 mls/hr 08/20/24 06:25 Dextrose 5% 1,000 Ml IVPB PRN PRN Hypoglycemia Protocol Insulin Aspart 4 - 8 units 08/20/24 08:00 08/21/24 16:27 Insulin Aspart (*Bkc) 100 Units/Ml SUB-Q Not Given TIDWM ALC[facility] Protocol Insulin Aspart 2 - 4 units 08/20/24 21:00 08/21/24 20:20 Insulin Aspart (*Bkc) 100 Units/Ml SUB-Q Not Given HS [facility] Protocol Insulin Glargine 15 units 08/21/24 17:00 08/21/24 16:32 Insulin Glargine (*Bkc) 100 Units/Ml SUB-Q 15 units BID ALCIRA Administration Losartan Potassium 25 mg 08/21/24 09:00 08/21/24 08:05 Losartan Potassium 25 Mg Tablet PO 25 mg DAILY ALCIRA Administration Metformin HCl 1,000 mg 08/22/24 08:00 Metformin Hcl 500 Mg Tablet PO BIDWM ALCIRA Ticagrelor 90 mg 08/20/24 09:00 08/21/24 20:20 Ticagrelor 90 Mg Tablet PO 90 mg Q12HR ALCIRA Administration Radiology Results: ITS Impressions Chest X-Ray 08/20/24 05:35 Impression: Minimal central congestive change and possible minimal bibasilar interstitial edema versus minimal bibasilar chronic interstitial change. Labs Labs: Laboratory Results - last 24 hr 08/21/24 08/21/24 08/21/24 11:02 16:13 20:10 POC Capillary Glucose 268 H 148 H 171 H 08/22/24 07:44 POC Capillary Glucose 168 H
--- NOTE | 2024-08-22 08:07 | PM.DS ---
DS: Admitting Diagnosis Discharge Date 08/22/24 Admitting Diagnosis (1) ST elevation (STEMI) myocardial infarction: Code(s): I21.3 - ST elevation (STEMI) myocardial infarction of unspecified site Status: Acute (2) S/P cardiac catheterization: Code(s): Z98.890 - Other specified postprocedural states Status: Acute (3) Hyperlipidemia: Code(s): E78.5 - Hyperlipidemia, unspecified Status: Acute (4) Type 2 diabetes mellitus: Code(s): E11.9 - Type 2 diabetes mellitus without complications Status: Acute DS: Discharge Diagnosis Discharge Diagnosis (1) ST elevation (STEMI) myocardial infarction: Code(s): I21.3 - ST elevation (STEMI) myocardial infarction of unspecified site Status: Acute (2) S/P cardiac catheterization: Code(s): Z98.890 - Other specified postprocedural states Status: Acute (3) Hyperlipidemia: Code(s): E78.5 - Hyperlipidemia, unspecified Status: Acute (4) Type 2 diabetes mellitus: Code(s): E11.9 - Type 2 diabetes mellitus without complications Status: Acute DS: Summary Hospital Course Hospital Course: 58-year-old female with history of type 2 diabetes mellitus. No known prior cardiac history. Patient presented to [facility] Emergency Room with complaints of chest pain, off and on for last for last few weeks with worsening of symptoms tonight. Patient describes her chest pain as substernal pressure-like sensation. She denies shortness of breath, palpitations, dizziness or syncope. She denies any prior history of clinical CT, heart failure or any known arrhythmias. The following med issues have been addressed during hospitalization ST elevation (STEMI) myocardial infarction: Code(s): I21.3 - ST elevation (STEMI) myocardial infarction of unspecified site Status: Acute Assessment and Plan: 08/20- Pt presented to the ED for worsening sternal chest pain that was present for 2-3 days. ECG in the ED demonstrated ST elevation in leads V1-V4 and Troponins were found to be elevated at 0.641 -s/p cardiac cath with KAMILLA placement by Dr. Price c/w Aspirin, Ticagrelor, Lipitor, Carvedilol, and Losartan systolic chf Left ventricular systolic function is moderately reduced, estimated at 35-40%. compensated Start Entresto per aircraft log clerk recommendation Uncontrolled type 2 diabetes T Code(s): E11.9 - Type 2 diabetes mellitus without complications Status: Acute Assessment and Plan: Pt has a history of DM and is on Glipizide 5mg BID and Metformin 1000mg BID. 08/20- In the ED, Glucose was 552 and A1C was 12.7 Diabetes is poorly controlled Resume glipizide and metformin Increased Lantus to 15 units b.i.d. Continue SSI continue to Accu-Cheks -research associate professor consulted Changed to Lantus 30 units q.h.s., continue current dose of lispro before each meals and sliding scale Glucose is controlled in the target Hyperlipidemia: Code(s): E78.5 - Hyperlipidemia, unspecified Status: Acute Assessment and Plan: 08/20- In the ED, pt was found to have Triglycerides of 257 and Cholesterol of 270. Cardiology consulted and started pt on Lipitor 80mg q daily Time Spent with Patient Time attestation: Total time spent providing and/or coordinating discharge services: Exam Narrative: GENERAL: Pleasant, in no acute distress. Well-nourished. - EYES: EOMI. Anicteric. - HENT: Moist mucous membranes. - LUNGS: Clear to auscultation bilaterally, no wheezing, rhonchi, or rales. - CARDIOVASCULAR: Regular rate and rhythm. No murmur. No JVD. - ABDOMEN: Soft, non-tender and non-distended. No palpable masses. Right groin needle inserting site is dry and clean, no hematoma - EXTREMITIES: No edema. Peripheral pulses 2+. Non-tender. - NEUROLOGIC: No focal neurological deficits. CN II-XII grossly intact. - PSYCHIATRIC: Awake, Alert and oriented x 3. Appropriate mood and affect. - SKIN: No rashes or lesions. Warm. - LYMPH: No cervical lymphadenopathy. DS: Data Data Completed and Pending Labs on day of discharge: Labs from last 24 hours 08/22/24 08/21/24 08/21/24 07:44 20:10 16:13 POC Capillary Glucose 168 H 171 H 148 H 08/21/24 11:02 POC Capillary Glucose 268 H Discharge Plan Discharge Attending physician on discharge: Crescencio Campbell Consulting providers: Rob Price; Carine Griggs Discharging Clinician: Crescencio Campbell Patient Disposition: Home Activity: as tolerated Diet: as tolerated and heart healthy Patient Instructions: Antibiotic Form, Heart Attack (DC), Type 2 Diabetes Management for Adults (DC) Patient Language: Hungarian Stand Alone Forms: General Discharge Information Follow-up/Referrals: June,Antonia Montalvo MD [Primary Care Provider] - Laurie Zuluaga MD [Physician] - 1 Week Discharge Medications: New Brilinta 90 mg Tablet 90 mg PO Q12HR Qty: 180 3RF atorvastatin 40 mg Tablet 80 mg PO DAILY Qty: 60 0RF aspirin 81 mg Tablet,Delayed Release (Dr/Ec) 81 mg PO QAM Qty: 60 0RF carvedilol [Coreg] 3.125 mg Tablet 6.25 mg PO Q12HR Qty: 120 2RF insulin aspart U-100 [Novolog U-100 Insulin aspart] 100 unit/mL Solution 4 - 8 unit subcut TIDWM Qty: 10 1RF Protocol: Insulin Corrective High-Dose Condition: glucose < 70 mg/dl Dose/Route: Follow hypoglycemia order Condition: glucose 70-200 mg/dl Dose/Route: No additional insulin Condition: glucose 201-250 mg/dl Dose/Route: 4 units sub-Q Condition: glucose 251-300 mg/dl Dose/Route: 5 units sub-Q Condition: glucose 301-350 mg/dl Dose/Route: 6 units sub-Q Condition: glucose 351-400 mg/dl Dose/Route: 8 units sub-Q Condition: glucose > 400 mg/dl Dose/Route: Call Protocol Text: *No Correction Dose at Bedtime* Rx Instructions: Instruction glucose < 70 mg/dl Follow hypoglycemia order glucose 70-200 mg/dl No additional insulin glucose 201-250 mg/dl 4 units sub-Q glucose 251-300 mg/dl 5 units sub-Q glucose 301-350 mg/dl 6 units sub-Q glucose 351-400 mg/dl 8 units sub-Q glucose > 400 mg/dl Call Jardiance 10 mg Tablet 10 mg PO DAILY Qty: 60 0RF insulin aspart U-100 [Novolog U-100 Insulin aspart] 100 unit/mL Solution 2 - 4 unit subcut HS Qty: 10 0RF Protocol: Insulin Corrective High-Dose Condition: glucose < 70 mg/dl Dose/Route: Follow hypoglycemia order Condition: glucose 70-200 mg/dl Dose/Route: No additional insulin Condition: glucose 201-250 mg/dl Dose/Route: 2 units sub-Q Condition: glucose 251-300 mg/dl Dose/Route: 2 units sub-Q Condition: glucose 301-350 mg/dl Dose/Route: 3 units sub-Q Condition: glucose 351-400 mg/dl Dose/Route: 4 units sub-Q Condition: glucose > 400 mg/dl Dose/Route: Call MD Rx Instructions: Instruction glucose < 70 mg/dl Follow hypoglycemia order glucose 70-200 mg/dl No additional insulin glucose 201-250 mg/dl 2 units sub-Q glucose 251-300 mg/dl 2 units sub-Q glucose 301-350 mg/dl 3 units sub-Q glucose 351-400 mg/dl 4 units sub-Q glucose > 400 mg/dl Call insulin glargine [Lantus U-100 Insulin] 100 unit/mL Solution 30 unit subcut HS Qty: 10 2RF losartan 25 mg Tablet 25 mg PO DAILY Qty: 60 0RF (DME) diabetic supplies, miscellan. [facility] See Rx Instructions .Route Qty: 1 0RF Rx Instructions: As directed (DME) blood-glucose meter [OneTouch Verio Flex meter] [facility] Qty: 1 0RF Rx Instructions: May substitute to in-stock meter and/or covered by insurance. Use As Directed (DME) OneTouch Verio test strips Strip Qty: 1 0RF Rx Instructions: May substitute to in-stock and/or covered by insurance strips. Use As Directed (DME) pen needle, diabetic 32 gauge x 5/32 Needle Qty: 1 0RF Rx Instructions: As Directed (DME) lancets [OneTouch Delica Plus Lancet] 30 gauge [facility] Qty: 1 0RF Rx Instructions: May substitute to in-stock and/or covered by insurance lancets. Use As Directed (DME) insulin syringe,safety needle 0.5 mL 31 gauge x 5/16 Syringe Qty: 1 0RF Rx Instructions: As Directed Continued metformin 500 mg tablet 1,000 mg PO BID Qty: 120 0RF glipizide 5 mg tablet 5 mg PO BID Qty: 60 0RF Date of admission: 08/20/24 04:01 Primary Care Provider: June,Antonia Montalvo Admitting Provider: Rob Price Attending physician on admission: Rob Price Condition: Stable
[2024-08-22 08:33] LABS: Hematocrit 36.6 % (37.0-47.0); Hemoglobin 11.6 g/dL (12.0-15.0); Mean Corpuscular HGB Conc 31.7 g/dl (32-36); Mean Corpuscular Hemoglobin 30.4 pg (26-34); Mean Corpuscular Volume 96.1 fl (80-100); Mean Platelet Volume 11.3 fl (7.4-10.4); Platelet Count Result 268 k/mm3 (150-375); Red Blood Count 3.81 M/mm3 (4.2-5.4); Red Cell Distribution Width 12.5 % (11.5-14.5); White Blood Count 9.1 K/mm3 (4.5-10.0)
[2024-08-22 08:48] LABS: Anion Gap 8 mmol/L (4-12); Blood Urea Nitrogen 19 mg/dL (7-17); Calcium 8.6 mg/dL (8.4-10.2); Carbon Dioxide 28 mmol/L (22-30); Chloride 102 mmol/L (98-107); Estimated CRCL calculation 91 ml/min; Estimated Glomerular Filt Rate > 60; Glucose 201 mg/dL (65-110); Potassium 3.8 mmol/L (3.4-5.0); Sodium 138 mmol/L (137-145)
[2024-08-22] MEDS: ACETAMINOPHEN 325 MG TABLET 650 MG PO (08:59)
[2024-08-22] MEDS: ATORVASTATIN 40 MG TABLET 80 MG PO (09:00)
[2024-08-22] MEDS: TICAGRELOR 90 MG TABLET PO (09:00)
[2024-08-22] MEDS: metFORMIN HCL 500 MG TABLET 1000 MG PO (09:00)
[2024-08-22] MEDS: glipiZIDE 5 MG TABLET PO (09:00)
[2024-08-22] MEDS: ASPIRIN 81 MG ENTERIC TABLET PO (09:01)
[2024-08-22] MEDS: carvediloL 3.125 MG TABLET 6.25 MG PO (09:01)
[2024-08-22] MEDS: LOSARTAN POTASSIUM 25 MG TABLET PO (09:01)
[2024-08-22] MEDS: ENOXAPARIN 40 MG/0.4 ML SYRINGE SUB-Q (09:01)
[2024-08-22] MEDS: EMPAGLIFLOZIN 10 MG TABLET PO (09:01)
--- NOTE | 2024-08-22 10:19 | PC.NURSE ---
D/C order entered this morning. See orders for further details. Director Non Profit rounded on Pt this am. Cardiology okay to discharge. Notified hospitalist that cardiology rounded and asked if he wanted to come see pt. Provider declined and approved d/c. Vitals signs stable. Pt A&Ox4 and ready to leave
--- NOTE | 2024-08-22 10:34 | P.PNCA_ITS ---
Progress Note: A&P Assessment and Plan (1) ST elevation (STEMI) myocardial infarction: Code(s): I21.3 - ST elevation (STEMI) myocardial infarction of unspecified site Status: Acute (2) Ischemic cardiomyopathy: Code(s): I25.5 - Ischemic cardiomyopathy Status: Acute (3) Hyperlipidemia: Code(s): E78.5 - Hyperlipidemia, unspecified Status: Acute Plan 58-year-old woman with hypertension and diabetes presented with chest pain found to have anterior ST-elevation TX Anterior ST-elevation TX -status post PCI -aspirin 81 mg p.o. indefinitely and Brilinta 90 mg p.o. b.i.d. for minimum of 1 year -residual obstructive CAD to be scheduled electively Ischemic cardiomyopathy -continue carvedilol 6.25 mg p.o. b.i.d., losartan 25 mg p.o. daily, Jardiance 10 mg p.o. daily -we discussed signs and symptoms of heart failure and patient instructed to call our office should she experience any of the symptoms Hyperlipidemia -continue atorvastatin 80 mg every evening Patient can follow-up in clinic without further inpatient workup Subjective Date/time seen: 08/22/24 10:34 Interval history: No chest pain and orthopnea. Ambulating without any chest pain or shortness of breath. Review of Systems Cardiovascular: Cardiovascular: Reports as per HPI Respiratory: Respiratory: Reports as per HPI Exam Const: General: comfortable HENMT: Mouth: Yes moist mucous membranes Eyes: EOM: EOMs intact bilaterally Neck: Neck: no JVD Resp: Effort & Inspection: normal respiratory effort Auscultation: clear to auscultation bilaterally Cardio: Rate: regular rate Rhythm: regular rhythm GI: GI Palp: Yes Soft to palpation Neuro: Speech: normal speech Extrem: Other: Right groin site dressing removed. No hematoma. Femoral pulses palpable. Objective Data Vital Signs Vital Signs: Vital Signs - 24 hr 08/21/24 12:00 08/21/24 12:00 08/21/24 14:00 Temperature 36.8 C Pulse Rate 89 88 86 Respiratory Rate 20 Blood Pressure 108/77 Pulse Oximetry 97 Oxygen Delivery Fraction of Inspired Oxygen 08/21/24 16:00 08/21/24 16:48 08/21/24 18:00 Temperature 36.8 C Pulse Rate 91 91 90 Respiratory Rate 20 Blood Pressure 117/59 L Pulse Oximetry 97 Oxygen Delivery Fraction of Inspired Oxygen 08/21/24 20:00 08/21/24 20:04 08/21/24 20:20 Temperature 36.6 C Pulse Rate 99 96 95 Respiratory Rate 20 Blood Pressure 104/79 Pulse Oximetry 97 Oxygen Delivery Fraction of Inspired Oxygen 08/21/24 20:35 08/21/24 22:00 08/21/24 23:42 Temperature 36.6 C Pulse Rate 95 88 80 Respiratory Rate 20 20 Blood Pressure 113/56 L Pulse Oximetry 97 97 Oxygen Delivery Room Air Fraction of Inspired Oxygen 08/22/24 00:00 08/22/24 00:00 08/22/24 02:00 Temperature Pulse Rate 80 84 83 Respiratory Rate 20 Blood Pressure Pulse Oximetry 97 Oxygen Delivery Room Air Fraction of Inspired Oxygen 21 08/22/24 03:40 08/22/24 04:00 08/22/24 04:12 Temperature 36.7 C Pulse Rate 83 86 93 Respiratory Rate 20 20 Blood Pressure 129/66 Pulse Oximetry 97 97 Oxygen Delivery Room Air Fraction of Inspired Oxygen 08/22/24 06:00 08/22/24 08:00 08/22/24 08:00 Temperature 36.5 C Pulse Rate 95 87 87 Respiratory Rate 16 16 Blood Pressure 114/56 L Pulse Oximetry 98 98 Oxygen Delivery Room Air Fraction of Inspired Oxygen 21 Intake/Output Intake/Output: Intake & Output 08/19/24 08/20/24 08/21/24 08/22/24 23:59 23:59 23:59 23:59 Intake Total 1910 1777 960 Output Total 1150 1000 800 Balance 760 777 160 Meds/Results Medications: Active Medications Generic Name Dose Route Start Last Admin Trade Name Freq PRN Reason Stop Dose Admin Acetaminophen 650 mg 08/21/24 05:18 08/22/24 08:59 Acetaminophen 325 Mg Tablet PO 650 mg Q4H PRN Administration Mild Pain (1-3) or Fever Aspirin 81 mg 08/21/24 09:00 08/22/24 09:01 Aspirin 81 Mg Enteric Tablet PO 81 mg QAM ALCIAR Administration Atorvastatin Calcium 80 mg 08/20/24 09:00 08/22/24 09:00 Atorvastatin 40 Mg Tablet PO 80 mg DAILY ALCIRA Administration Carvedilol 6.25 mg 08/20/24 21:00 08/22/24 09:01 Carvedilol 3.125 Mg Tablet PO 6.25 mg Q12HR ALCIRA Administration Dextrose 12.5 gm 08/20/24 06:25 Dextrose 50% 25 Gm/50 Ml Syringe IV PUSH PRN PRN Hypoglycemia Protocol Empagliflozin 10 mg 08/21/24 09:00 08/22/24 09:01 Empagliflozin 10 Mg Tablet PO 10 mg DAILY ALCIRA Administration Enoxaparin Sodium 40 mg 08/21/24 09:00 08/22/24 09:01 Enoxaparin 40 Mg/0.4 Ml Syringe SUB-Q 40 mg DAILY ALCIRA Administration Glipizide 5 mg 08/21/24 09:00 08/22/24 09:00 Glipizide 5 Mg Tablet PO 5 mg BID ALCIRA Administration Glucagon 1 mg 08/20/24 06:25 Glucagon For Inj 1 Mg Vial IM PRN PRN Hypoglycemia Protocol Glucose 15 gm 08/20/24 06:25 Glucose Oral Gel 15 Gm Of Glucse In 37.5 Gm Tube PO PRN PRN Hypoglycemia Protocol Dextrose 1,000 mls @ 100 mls/hr 08/20/24 06:25 Dextrose 5% 1,000 Ml IVPB PRN PRN Hypoglycemia Protocol Insulin Aspart 4 - 8 units 08/20/24 08:00 08/22/24 08:25 Insulin Aspart (*Bkc) 100 Units/Ml SUB-Q Not Given TIDWM [facility] Protocol Insulin Aspart 2 - 4 units 08/20/24 21:00 08/21/24 20:20 Insulin Aspart (*Bkc) 100 Units/Ml SUB-Q Not Given HS [facility] Protocol Insulin Glargine 15 units 08/21/24 17:00 08/22/24 09:02 Insulin Glargine (*Bkc) 100 Units/Ml SUB-Q Not Given BID ALCIRA Losartan Potassium 25 mg 08/21/24 09:00 08/22/24 09:01 Losartan Potassium 25 Mg Tablet PO 25 mg DAILY ALCIRA Administration Metformin HCl 1,000 mg 08/22/24 08:00 08/22/24 09:00 Metformin Hcl 500 Mg Tablet PO 1,000 mg BIDWM ALCIRA Administration Ticagrelor 90 mg 08/20/24 09:00 08/22/24 09:00 Ticagrelor 90 Mg Tablet PO 90 mg Q12HR ALCIRA Administration Radiology Results: ITS Impressions Chest X-Ray 08/20/24 05:35 Impression: Minimal central congestive change and possible minimal bibasilar interstitial e porter versus minimal bibasilar chronic interstitial change. Labs Labs: Laboratory Results - last 24 hr 08/21/24 08/21/24 08/21/24 11:02 16:13 20:10 WBC RBC Hgb Hct MCV MCH MCHC RDW Plt Count MPV Sodium Potassium Chloride Carbon Dioxide Anion Gap BUN Creatinine Estim Creat Clear Calc Estimated GFR Glucose POC Capillary Glucose 268 H 148 H 171 H Calcium 08/22/24 08/22/24 07:44 08:27 WBC 9.1 RBC 3.81 L Hgb 11.6 L Hct 36.6 L MCV 96.1 MCH 30.4 MCHC 31.7 L RDW 12.5 Plt Count 268 MPV 11.3 H Sodium 138 Potassium 3.8 Chloride 102 Carbon Dioxide 28 Anion Gap 8 BUN 19 H Creatinine 0.68 L Estim Creat Clear Calc 91 Estimated GFR > 60 Glucose 201 H POC Capillary Glucose 168 H Calcium 8.6
== END 2024-08-22 10:54 | disposition home or self-care (01) | DRG 322 ==
LOC: ANHCATHLAB 06:28 → ANHED 06:28 → ANHICU 06:28 → ANHIMU 08-22 08:08 → ANHICU 08-23 08:55 → ANHIMU 08-23 08:55
PROVIDERS: Internal Medicine; Admitting Provider Internal Medicine Cardiovascular Disease; Emergency Provider Emergency Medicine; PCP Family Medicine; Visit Provider Hospitalist
PROC: 4A023N7 Measurement of Cardiac Sampling and Pressure, Left Heart, Percutaneous Approach (ICD-10-PCS; CPT 93452; principal; 2024-08-20 04:10)
PROC: 027035Z Dilation of Coronary Artery, One Artery with Two Drug-eluting Intraluminal Devices, Percutaneous Approach (ICD-10-PCS; 2024-08-20 04:10)
PROC: 027035Z Dilation of Coronary Artery, One Artery with Two Drug-eluting Intraluminal Devices, Percutaneous Approach (ICD-10-PCS; 2024-08-20 04:10)
PROC: 027035Z Dilation of Coronary Artery, One Artery with Two Drug-eluting Intraluminal Devices, Percutaneous Approach (ICD-10-PCS; 2024-08-20 04:10)
DX: I21.09 ST elevation (STEMI) myocardial infarction involving other coronary artery of anterior wall (principal); I50.22 Chronic systolic (congestive) heart failure; I25.10 Atherosclerotic heart disease of native coronary artery without angina pectoris; I25.5 Ischemic cardiomyopathy; E11.9 Type 2 diabetes mellitus without complications; E78.5 Hyperlipidemia, unspecified
CPT/HCPCS: 36415; 71045; 80048; 80053; 80061; 82948; 83036; 83690; 83735; 84100; 84484; 85025; 85027; 85610; 85730; 86850; 86900; 86901; 87641; 92978; 93005; 93458; 96374; 96375; 99291; A9270; C1725; C1753; C1760; C1769; C1874; C1887; C1894; C8929; C9606; G0269; J0583; J1644; J1650; J1815; J2003; J2250; J2270; J2305; J3010; J7030; J7040; Q9957